=== PATIENT | female | born 1980 | race Caucasian/White ===

== ENCOUNTER 2018-08-15 14:42 | Outpatient (REF) | payer SELFPAY ==
[2018-08-15 21:00] LABS: T4 7.9 ug/dL (4.5-12.5); TSH 3.33 uIU/mL (0.358-3.74)
[2018-08-17 17:43] LABS: T3, Total 103 ng/dl (97-169)
== END 2018-08-15 15:02 ==
LOC: NCHCN 14:42
PROVIDERS: PCP Family Medicine; Visit Provider Family Medicine
DX: E03.9 Hypothyroidism, unspecified (principal)
CPT/HCPCS: 84436; 84443; 84480

== ENCOUNTER 2019-07-20 13:02 | Outpatient (REF) | payer MEDICAID, SELFPAY ==
[2019-07-20 14:16] LABS: Calculated LDL 103 mg/dL; Cholesterol 163 mg/dL (50-200); HDL Cholesterol 50 mg/dL (40-60); TSH (W/Ref FT4) 3.25 uIU/mL (0.36-3.74); Triglyceride 53 mg/dL (30-150)
== END 2019-07-20 13:22 ==
LOC: NCHCN 13:02
PROVIDERS: PCP Family Medicine; Visit Provider Family Medicine
DX: E03.9 Hypothyroidism, unspecified (principal); F41.9 Anxiety disorder, unspecified; Z13.220 Encounter for screening for lipoid disorders
CPT/HCPCS: 80061; 84443

== ENCOUNTER 2020-04-29 10:16 | Outpatient (REF) | payer MEDICAID, SELFPAY ==
[2020-04-29 21:15] LABS: TSH (W/Ref FT4) 0.88 uIU/mL (0.36-3.74)
== END 2020-04-29 10:36 ==
LOC: NCHCN 10:16
PROVIDERS: PCP Family Medicine; Visit Provider Family Medicine
DX: E03.9 Hypothyroidism, unspecified (principal)
CPT/HCPCS: 84443

== ENCOUNTER 2020-05-09 17:22 | Outpatient (REF) | payer MEDICAID, SELFPAY ==
[2020-05-13 05:52] LABS: SARS-CoV-2 RNA Undetected (Undetected)
== END 2020-05-09 17:42 ==
LOC: NCHCN 17:22
PROVIDERS: PCP Family Medicine; Visit Provider Nurse Practitioner Family
DX: R05 Cough (principal)
CPT/HCPCS: U0003

== ENCOUNTER 2020-05-16 07:08 | Outpatient (CLI) | payer MEDICAID, SELFPAY ==
[2020-05-17 23:48] LABS: COVID-19 RT-PCR Result NEGATIVE (Negative)
== END 2020-05-16 07:28 ==
PROVIDERS: PCP Family Medicine; Visit Provider Family Medicine
DX: Z11.59 Encounter for screening for other viral diseases (principal); Z01.818 Encounter for other preprocedural examination
CPT/HCPCS: U0003

== ENCOUNTER 2020-05-19 04:36 | Outpatient (CLI) | payer MEDICAID, SELFPAY ==
[2020-05-19] MEDS: Inhaler, Assist Device 1 EACH MC (11:47)
[2020-05-19] MEDS: Albuterol HFA 18 GM 200 PUFF INH IH (11:47)
--- NOTE | 2020-05-23 10:08 | W.PFT ---
Date of service: 05/19/20 Time of Service: 10:06 Pulmonary Function Test Result Interpretation Spirometry: Shows no evidence of obstructive airways disease, no bronchodilator response Lung Volumes: No evidence of restriction Diffusion Capacity: Normal Airway Pressure: Normal Impression Normal pulmonary function study, clinical correlation recommended Clinical Correlation therefore is recommended.
== END 2020-05-19 04:56 ==
PROVIDERS: PCP Family Medicine; Visit Provider Family Medicine
DX: R05 Cough (principal); R06.09 Other forms of dyspnea; R07.9 Chest pain, unspecified
CPT/HCPCS: 94060; 94726; 94729

== ENCOUNTER 2021-03-16 10:02 | Outpatient (CLI) | payer MEDICAID, SELFPAY ==
--- NOTE | 2021-03-16 | DI.US_ITS ---
Exam(s) US PELVIS TRANSVAGINAL EXAM: US PELVIS TRANSVAGINAL CLINICAL HISTORY: PELVIC PAIN, R10.2 TECHNIQUE: Ultrasound of the pelvis was performed both transabdominal and transvaginal. COMPARISON: None FINDINGS: UTERUS: Uterus is nongravid anteverted. Measures 10.4 cm length x 5.7 cm AP x 1.2 cm wide. There is a small 2 millimeter hyperechoic focus in the anterior myometrium at the fundus level which is possibly a tiny calcified fibroid. No large fibroids identified. Endometrial thickness measures 3 mm. There is no fluid in the endometrial canal. CERVIX: There are no obvious nabothian cysts. RIGHT OVARY: Measures 3.2 x 1.7 x 1.5 cm Contains small subcentimeter follicular cysts. Normal blood flow. LEFT OVARY: Measures 2.7 x 1.6 x 1.8 cm Also contains small subcentimeter follicular cysts. Normal blood flow. CUL-DE-SAC: No free fluid evident. IMPRESSION: 1. There is a small 2-3 millimeter hyperechoic focus which is probably a small calcification in the a nterior myometrium at the level the fundus, probably a tiny calcified fibroid. No other uterine find ings. Endometrial thickness is age-appropriate and there is no fluid in the endometrial canal. 2. Small follicular cysts noted in both ovaries. No solid ovarian masses. 3. No free fluid evident in the adnexal regions and cul-de-sac. DATA REPOSITORY:
== END 2021-03-16 10:22 ==
PROVIDERS: PCP Family Medicine; Visit Provider Advanced Practice Midwife
DX: N83.02 Follicular cyst of left ovary (principal); N83.01 Follicular cyst of right ovary; N85.8 Other specified noninflammatory disorders of uterus
CPT/HCPCS: 76830; 76856

== ENCOUNTER 2021-05-15 14:50 | Outpatient (REF) | payer MEDICAID, SELFPAY ==
[2021-05-15 21:59] LABS: TSH (W/Ref FT4) 3.67 uIU/mL (0.36-3.74)
== END 2021-05-15 14:51 | disposition home or self-care (01) ==
LOC: NCHCN 14:50
PROVIDERS: PCP Family Medicine; Visit Provider Family Medicine
DX: E03.9 Hypothyroidism, unspecified (principal)
CPT/HCPCS: 84443

== ENCOUNTER 2021-07-19 08:57 | Outpatient (REF) | payer MEDICAID, SELFPAY ==
[2021-07-19 15:19] LABS: FREE T4 1.35 ng/dL (0.76-1.46); TSH 1.15 uIU/mL (0.36-3.74)
[2021-07-19 21:50] LABS: T3,Free 3.4 pg/mL (2.8-5.3)
== END 2021-07-19 08:58 | disposition home or self-care (01) ==
LOC: NCHCN 08:57
PROVIDERS: PCP Family Medicine; Visit Provider Family Medicine
DX: E03.9 Hypothyroidism, unspecified (principal)
CPT/HCPCS: 84439; 84443; 84481

== ENCOUNTER 2022-06-13 10:09 | Outpatient (REF) | payer MEDICAID, SELFPAY ==
[2022-06-13 16:03] LABS: FREE T4 1.63 ng/dL (0.76-1.46); TSH 0.08 uIU/mL (0.36-3.74)
[2022-06-14 19:31] LABS: T3,Free 4.5 pg/mL (2.8-5.3)
== END 2022-06-13 10:10 | disposition home or self-care (01) ==
LOC: NCHCN 10:09
PROVIDERS: PCP Family Medicine; Visit Provider Family Medicine
DX: E03.9 Hypothyroidism, unspecified (principal)
CPT/HCPCS: 84439; 84443; 84481

== ENCOUNTER 2022-07-23 15:41 | Outpatient (REF) | payer MEDICAID, SELFPAY ==
[2022-07-23 16:02] LABS: TSH 0.57 uIU/mL (0.36-3.74)
== END 2022-07-23 15:42 | disposition home or self-care (01) ==
LOC: NCHCN 15:41
PROVIDERS: PCP Family Medicine; Visit Provider Family Medicine
DX: E03.9 Hypothyroidism, unspecified (principal)
CPT/HCPCS: 84439; 84443

== ENCOUNTER 2022-11-19 01:26 | Outpatient (CLI) | payer MEDICAID, SELFPAY ==
--- NOTE | 2022-11-19 11:45 | DI.MAMMO_ITS ---
Exam(s) MAMMO SCREENING EXAM: MAMMO SCREENING CLINICAL HISTORY: screening TECHNIQUE: Bilateral full field digital CC and MLO mammographic images were obtained with 3D tomosyn thesis and utilizing computer aided detection (CAD). COMPARISON: None. FINDINGS: Masses/Architectural Distortion: None seen. Microcalcifications: No suspicious pleomorphic-type are seen. Skin Thickening/Nipple Retraction: None. IMPRESSION: 1. No significant interval change with no specific features of malignancy noted. 2. Unless there is more urgent need, screening mammography is recommended, as per [employer] guidelines. BI-RADS Category 1 - Negative Breast Density - Category C - Heterogeneously dense Breast density category C or D implies that the patient has dense breast tissue. Dense breast tissue is very common and is not abnormal but dense breast tissue can make it harder to find cancer on a ma mmogram. Also, dense breast tissue may increase their breast cancer risk. This information about the result of the mammogram report was provided to the patient to raise their awareness. Use this report when you speak with the patient about their risks for breast cancer, which includes their family hist ory. At that time, you may recommend for more screening tests (Ultrasound or MRI) as they might be us eful based on their risk. A negative radiographic report should not delay biopsy if a dominant or clinically suspicious mass is present. Up to ten percent of cancers are not identified on mammography. A negative report may reinforce clinical impression. Adenosis and dense breasts may obscure an underlying neoplasm. False positive reports average 6 to 10%. Patient will receive a letter notifying them of these results.
== END 2022-11-19 01:46 ==
LOC: DI 01:27
PROVIDERS: PCP Family Medicine; Visit Provider Obstetrics & Gynecology
DX: Z12.31 Encounter for screening mammogram for malignant neoplasm of breast (principal)
CPT/HCPCS: 77063; 77067

== ENCOUNTER 2023-02-20 13:01 | Outpatient (REF) | payer MEDICAID, SELFPAY ==
[2023-02-20 14:42] LABS: HCT 41.6 % (36.0-46.0); HGB 13.9 g/dL (11.2-15.7); MCH 30.3 pg (27.0-33.0); MCHC 33.4 % (32.0-36.0); MCV 91 fL (80-95); MPV 9.4 fL (8.0-11.0); Platelet Count 288 10^3/uL (130-400); RBC 4.59 10^6/uL (3.93-5.22); RDW 12.2 % (11.7-14.6); RDW-SD 40.6 fL; WBC 6.44 10^3/uL (4.4-10.8)
[2023-02-20 15:40] LABS: Anion Gap 3.7 mmol/L (3-11); BUN 13 mg/dL (7-18); CO2 30.3 mmol/L (21.0-32.0); CREATININE 0.8 mg/dL (0.55-1.02); Calculated LDL 104 mg/dL (<100); Chloride 107 mmol/L (98-107); Cholesterol 211 mg/dL (<200); Estimated GFR 94.28 (mL/min/1.73m2); Glucose 92 mg/dL (74-106); HDL Cholesterol 80 mg/dL (40-60); Potassium 4.3 mmol/L (3.5-5.1); Sodium 141 mmol/L (136-145); TSH 3.04 uIU/mL (0.36-3.74); Triglyceride 138 mg/dL (<150)
[2023-02-21 10:38] LABS: Hepatitis C Ab w Rflx HCV PCR Negative (Negative)
== END 2023-02-20 13:02 | disposition home or self-care (01) ==
LOC: NCHCN 13:01
PROVIDERS: PCP Family Medicine; Visit Provider Registered Nurse
DX: Z82.49 Family history of ischemic heart disease and other diseases of the circulatory system (principal); Z13.220 Encounter for screening for lipoid disorders; Z11.59 Encounter for screening for other viral diseases; Z13.29 Encounter for screening for other suspected endocrine disorder; Z13.228 Encounter for screening for other metabolic disorders; Z13.0 Encounter for screening for diseases of the blood and blood-forming organs and certain disorders involving the immune mechanism; Z00.00 Encounter for general adult medical examination without abnormal findings
CPT/HCPCS: 80048; 80061; 85027; 86803; 84443

== ENCOUNTER 2023-03-29 16:01 | Emergency (ER) | payer MEDICAID, SELFPAY ==
--- NOTE | 2023-03-29 16:00 | DI.RAD_ITS ---
Exam(s) XR HAND RT COMPLETE EXAM: XR HAND RT COMPLETE CLINICAL HISTORY: Laceration, R/O Glass FB. TECHNIQUE: 2D digital imaging was performed. Three views. COMPARISON: No exams were available for comparison FINDINGS: BONES: No acute fracture is present. No bony destructive lesion is seen. JOINTS: No dislocation present. SOFT TISSUE: Gauze medially. No foreign body. IMPRESSION: Unremarkable radiographs of the right hand. DATA REPOSITORY: RADIATION DOSE DELIVERED:
[2023-03-29 16:04] VITALS: BP 112/61; PULSE 84; RESP 16; TEMP 36.9; O2SAT 99
--- NOTE | 2023-03-29 17:06 | ED.GENADUL_ITS ---
Discharge Plan Disposition Patient Disposition: Home Condition: Stable Discharge Details Clinical Impression: Laceration of hand, right Primary Care Provider: Thalia Rodríguez ED Provider: Leslie Chowdhury Home Meds and New Rx's Prescriptions: No Action levothyroxine 100 mcg capsule 112 mcg PO DAILY budesonide-formoterol [Symbicort] 80-4.5 mcg/actuation HFA aerosol inhaler 1 inh inhalation ONCE alprazolam 0.25 mg tablet 0.25 mg PO QHS PRN fluticasone propionate 50 mcg/actuation spray,suspension 1 spray intranasal DAILY Rx Instructions: administer into each nostril etonogestrel-ethinyl estradiol [NuvaRing] 0.12-0.015 mg/24 hr ring 1 vag ring vaginal Q4W Qty: 3 4RF Rx Instructions: leave in place for 4 weeks. Then remove and replace with the new ring. albuterol 90 mcg/actuation Aerosol 90 mcg INHALATION PRN PRN Discharge Instructions Instructions: Laceration (ED) Additional Instructions: Have sutures removed in 7 to 10 days. No soaking. Keep clean and dry. After 12 to 24 hours you may wash under running soap and water. Return sooner for any signs of infection including red streaks drainage swelling or tenderness. The anesthesia will wear off in approximately 2 hours. Follow up with primary care provider in 3-5 days if needed. Return to ED sooner if any worsening or concerns. Increase oral fluids. Please take Tylenol or Ibuprofen with food every 4-6 hours as needed for pain and swelling. Referrals: Thalia Rodríguez, AUDIO VISUAL TECH [Primary Care Provider] - 1 week Medical Decision Making 42-year-old female presents to the ER with chief complaint of right hand laceration. Patient hit counter prior to arrival and accidentally hit a glass. She has approximately 4 cm laceration noted to the dorsal aspect of her ulnar surface of her hand. Bleeding is controlled upon arrival. EMS was called to the scene and applied dressing. She does have distal CMS intact. She reports a little bit of numbness to the pinky finger. She does have full range of motion in full flexion and extension. Last Tdap was approximately 7 years ago. She does have a past medical history of autism and ADHD, anxiety asthma migraines and hypothyroidism. Laceration cleaned with chlorhexidine, anesthetized with 1.5% lidocaine with e pi, patient tolerated well. Laceration repaired with #7 four-point 0 Ethilon sutures wound well approximated. Discussed home care strict return instructions and to have sutures removed in approximately 7 to 10 days. She verbalized understanding. She does have a little bit of numbness to her pinky however she does have full flexion extension which was again verified post in preanesthesia. See preprocedure note. Patient discharged home with home care. This text was generated using [employer]volent dictation system, please disregard any oddities of phrase or misspellings. Imaging Data Radiologic Study: Imaging: X-Ray Radiologist's impression: Imaging protocol: Radiologic exam of the right hand. Views: 3 or more views. COMPARISON: No relevant prior studies available. FINDINGS: Bones/joints: There is no evidence of acute fracture.There is no evidence of malalignment or dislocation. Soft tissues: No foreign body identified. IMPRESSION: 1. There is no evidence of acute fracture.There is no evidence of malalignment or dislocation. 2. No foreign body identified. Thank you for allowing us to participate in the care of your patient. Dictated and Authenticated by: Amy Osman MD [facility] General Mode of arrival: EMS . Date/Time Provider Initiated Documentation: 03/29/23 16:11 . Limitations to Documentation: no limitations . Information obtained by: patient, RN notes reviewed and old records reviewed . HPI Narrative: 42-year-old female presents to the ER with chief complaint of right hand laceration. Patient hit counter prior to arrival and accidentally hit a glass. She has approximately 4 cm laceration noted to the dorsal aspect of her ulnar surface of her hand. Bleeding is controlled upon arrival. EMS was called to the scene and applied dressing. She does have distal CMS intact. She reports a little bit of numbness to the pinky finger. She does have full range of motion in full flexion and extension. Last Tdap was approximately 7 years ago. She does have a past medical history of autism and ADHD, anxiety asthma migraines and hypothyroidism. Related Data Home Medications Medication Instructions Recorded Confirmed alprazolam 0.25 mg tablet 0.25 mg PO QHS PRN 10/22/22 03/29/23 budesonide-formoterol HFA 80 1 inh inhalation ONCE 10/22/22 03/29/23 mcg-4.5 mcg/actuation aerosol inhaler (Symbicort) etonogestrel 0.12 mg-ethinyl 1 vag ring vaginal Q4W #3 ea 10/22/22 03/29/23 estradiol 0.015 mg/24 hr vaginal ring (NuvaRing) fluticasone propionate 50 1 spray intranasal DAILY 10/22/22 03/29/23 mcg/actuation nasal spray,suspension levothyroxine 100 mcg capsule 112 mcg PO DAILY 10/22/22 03/29/23 albuterol 90 mcg/actuation aerosol 90 mcg inhalation PRN PRN 03/29/23 03/29/23 inhaler Previous Rx's Medication Instructions Recorded etonogestrel 0.12 mg-ethinyl 1 vag ring vaginal Q4W #3 ea 10/22/22 estradiol 0.015 mg/24 hr vaginal ring (NuvaRing) Allergies Allergy/AdvReac Type Severity Reaction Status Date / Time acetaminophen [From Vicodin] AdvReac Mild Verified 03/29/23 16:09 hydrocodone [From Vicodin] AdvReac Mild Verified 03/29/23 16:09 General Stated Complaint: Laceration EZIO: 4 Review of Systems Integumentary/Breasts Skin/Breast: Reports wounds PFSH All Active Problems (Updated 03/29/23 @ 19:15 by Leslie Chowdhury NP) Abnormal perimenopausal bleeding (Acute) Laceration of hand, right (Acute) Medical History Acquired hypothyroidism Hashimotos Anxiety with occasional depression Asthma Migraine Perforation of right tympanic membrane Tinnitus, bilateral Vertigo Surgical History History of dilation and curettage For molar in ~2004 Family History Paternal Aunt Breast cancer Social History Smoking/Tobacco Use Status: Never Smoking risk assessment performed?: Yes Alcohol Intake: never Drug use: Never Substance use type: does not use Adopted: No Household members: spouse and children Housing: house Number of Children: 3 Communication Needs: None Sexually active: Yes Do you think of yourself as: straight/heterosexual Current gender identity: female What is your relationship status?: Panel score (0-1 are the most socially isolated patients): 1 Do you feel safe at home: Yes Do you feel safe in your relationship?: Yes Female Reproductive History Menstrual Age of Menarche: 15 Duration of menses: 3-5 days control method: permanent sterilization (vasectomy) History History 5 Para 3 Hx # Term Pregnancies 3 Multiple births Hx # Pregnancies Ectopic pregnancies AB induced Hx Number of Living Children 3 AB spontaneous Past Pregnancies Del. Date GA/Weeks # Preg Succ Route Wgt Sex Labor Lgth Anesth esia Location Prov Complic 09/23/03 No 09/23/04 No 02/25/07 38 No Yes vaginal 2920.001 g Female [place], [place] 12/23/08 40 No Yes vaginal 4167.38 g Female [facility] 11/27/15 40 No Yes vaginal 3968.933 g Male [facility] [place], [place] Delivery Date: 09/23/03 Last Updated by: Kassy Caro MD [facility] Delivery Date: 09/23/04 Last Updated by: Kassy Caro MD [facility] - D&C Delivery Date: 02/25/07 Last Updated by: Kassy Caro MD Re[facility] - Autism spectrum Delivery Date: 12/23/08 Last Updated by: Kassy Caro MD [place] Delivery Date: 11/27/15 Last Updated by: Kassy Caro MD Richi - autism spectrum Exam Extrem Right upper extremity: hand Details: laceration dorsal hand ulnar aspect proximal Details: irregular and L-shaped Hand/finger images: 1. Approximately 4 cm laceration noted bleeding controlled at this time. Course Vital Signs Vital signs: Vital Signs Temperature 36.9 C 03/29/23 16:04 Pulse 84 03/29/23 16:04 Respiratory Rate 16 03/29/23 16:04 Blood Pressure 112/61 03/29/23 16:04 Pulse Oximetry 99 03/29/23 16:04 Temperature 36.9 C 03/29/23 16:04 Temperature Source Skin 03/29/23 16:04 Pulse 84 03/29/23 16:04 Respiratory Rate 16 03/29/23 16:04 Blood Pressure 112/61 03/29/23 16:04 Blood Pressure Position Sitting 03/29/23 16:04 Pulse Oximetry 99 03/29/23 16:04 Oxygen Delivery Method Room Air 03/29/23 16:04 Oxygen Flow Rate 0 03/29/23 16:04 Pain Level 5 03/29/23 16:04 Procedures Laceration Laceration 1: Site: hand Side (If applicable): right Size (cm): 4 Description: irregular Depth: simple, single layer Local Anesthetic: Lidocaine 1% and with Epi Amount of anesthesia used (mL): 3 Pre-repair: wound explored, irrigated extensively and deep structures intact Skin layer closed with: nylon Size (cm): 4-0 Number of sutures: 7 Technique: simple, interrupted
--- NOTE | 2023-03-29 17:50 | DI.VRAD_ITS ---
PROCEDURE INFORMATION: Exam: XR Right Hand Exam date and time: 03/29/2023 5:19 PM Age: 42 years old Clinical indication: Injury or trauma; Other: Laceration, R/O glass fb TECHNIQUE: Imaging protocol: Radiologic exam of the right hand. Views: 3 or more views. COMPARISON: No relevant prior studies available. FINDINGS: Bones/joints: There is no evidence of acute fracture.There is no evidence of malalignment or dislocation. Soft tissues: No foreign body identified. IMPRESSION: 1. There is no evidence of acute fracture.There is no evidence of malalignment or dislocation. 2. No foreign body identified. Dictated and Authenticated by: Amy Osman MD. Ordering:MAKI Nelson MD
[2023-03-29 19:32] VITALS: BP 101/84; PULSE 84; RESP 18; TEMP 37; O2SAT 99
== END 2023-03-29 19:36 | disposition home or self-care (01) ==
PROVIDERS: Emergency Provider Registered Nurse Emergency; PCP Registered Nurse
DX: S61.411A Laceration without foreign body of right hand, initial encounter (principal); W26.8XXA Contact with other sharp object(s), not elsewhere classified, initial encounter
CPT/HCPCS: 12002; 99283; 73130

== ENCOUNTER 2023-04-06 09:18 | Emergency (ER) | payer MEDICAID, SELFPAY ==
[2023-04-06 09:20] VITALS: BP 132/81; PULSE 90; RESP 16; TEMP 37.3; O2SAT 100
--- NOTE | 2023-04-06 09:36 | ED.GENADUL_ITS ---
Discharge Plan Disposition Patient Disposition: Home Discharge Details Clinical Impression: Encounter for removal of sutures Primary Care Provider: Thalia Rodríguez ED Provider: Marvin Sebastian Home Meds and New Rx's Prescriptions: No Action levothyroxine 100 mcg capsule 112 mcg PO DAILY budesonide-formoterol [Symbicort] 80-4.5 mcg/actuation HFA aerosol inhaler 1 inh inhalation ONCE alprazolam 0.25 mg tablet 0.25 mg PO QHS PRN fluticasone propionate 50 mcg/actuation spray,suspension 1 spray intranasal DAILY Rx Instructions: administer into each nostril etonogestrel-ethinyl estradiol [NuvaRing] 0.12-0.015 mg/24 hr ring 1 vag ring vaginal Q4W Qty: 3 4RF Rx Instructions: leave in place for 4 weeks. Then remove and replace with the new ring. albuterol 90 mcg/actuation Aerosol 90 mcg INHALATION PRN PRN Discharge Instructions Additional Instructions: Monitor wound for any signs of infection and return immediately if these occur. Otherwise continue to keep wound clean and dry. Referrals: Thalia Rodríguez, SCHOOL BUS AIDE [Primary Care Provider] - (As needed for reassessment) Medical Decision Making 7 sutures removed, Steri-Strips placed to continue to help wound healing. HPI General Mode of arrival: ambulatory . Date/Time Provider Initiated Documentation: 04/06/23 09:20 . Limitations to Documentation: no limitations . Information obtained by: patient, RN notes reviewed and old records reviewed . History of Present Illness 42 year old F presents to the emergency department with the chief complaint of Suture removal, Patient notes no other symptoms.. Related Data Home Medications Medication Instructions Recorded Confirmed alprazolam 0.25 mg tablet 0.25 mg PO QHS PRN 10/22/22 04/06/23 budesonide-formoterol HFA 80 1 inh inhalation ONCE 10/22/22 04/06/23 mcg-4.5 mcg/actuation aerosol inhaler (Symbicort) etonogestrel 0.12 mg-ethinyl 1 vag ring vaginal Q4W #3 ea 10/22/22 04/06/23 estradiol 0.015 mg/24 hr vaginal ring (NuvaRing) fluticasone propionate 50 1 spray intranasal DAILY 10/22/22 04/06/23 mcg/actuation nasal spray,suspension levothyroxine 100 mcg capsule 112 mcg PO DAILY 10/22/22 04/06/23 albuterol 90 mcg/actuation aerosol 90 mcg inhalation PRN PRN 03/29/23 04/06/23 inhaler Previous Rx's Medication Instructions Recorded etonogestrel 0.12 mg-ethinyl 1 vag ring vaginal Q4W #3 ea 10/22/22 estradiol 0.015 mg/24 hr vaginal ring (NuvaRing) Allergies Allergy/AdvReac Type Severity Reaction Status Date / Time acetaminophen [From Vicodin] AdvReac Mild Verified 04/06/23 09:23 hydrocodone [From Vicodin] AdvReac Mild Verified 04/06/23 09:23 General Stated Complaint: SutureRem EZIO: 5 Review of Systems Constitutional Constitutional: Denies chills and Denies fever(s) Musculoskeletal Musculoskeletal: Denies arthralgias Integumentary/Breasts Skin/Breast: Denies rash and Denies skin swelling PFSH All Active Problems (Updated 04/06/23 @ 09:41 by Marvin Sebastian NP) Abnormal perimenopausal bleeding (Acute) Laceration of hand, right (Acute) Encounter for removal of sutures (Acute) Medical History Acquired hypothyroidism Hashimotos Anxiety with occasional depression Asthma Migraine Perforation of right tympanic membrane Tinnitus, bilateral Vertigo Surgical History History of dilation and curettage For molar in ~2004 Family History Paternal Aunt Breast cancer Social History Smoking/Tobacco Use Status: Never Smoking risk assessment performed?: Yes Alcohol Intake: never Drug use: Never Substance use type: does not use Adopted: No Household members: spouse and children Housing: house Number of Children: 3 Communication Needs: None Sexually active: Yes Do you think of yourself as: straight/heterosexual Current gender identity: female What is your relationship status?: Panel score (0-1 are the most socially isolated patients): 1 Do you feel safe at home: Yes Do you feel safe in your relationship?: Yes Female Reproductive History Menstrual Age of Menarche: 15 Duration of menses: 3-5 days control method: permanent sterilization (vasectomy) History History 5 Para 3 Hx # Term Pregnancies 3 Multiple births Hx # Pregnancies Ectopic pregnancies AB induced Hx Number of Living Children 3 AB spontaneous Past Pregnancies Del. Date GA/Weeks # Preg Succ Route Wgt Sex Labor Lgth Anesth esia Location Prov Complic 09/23/03 No 09/23/04 No 02/25/07 38 No Yes vaginal 2920.001 g Female [place], [place] 12/23/08 40 No Yes vaginal 4167.38 g Female [facility] 11/27/15 40 No Yes vaginal 3968.933 g Male [facility] [place], [place] Delivery Date: 09/23/03 Last Updated by: Kassy Caro MD [facility] Delivery Date: 09/23/04 Last Updated by: Kassy Caro MD [facility] - D&C Delivery Date: 02/25/07 Last Updated by: Kassy Caro MD Re[facility] - Autism spectrum Delivery Date: 12/23/08 Last Updated by: Kassy Caro MD [place] Delivery Date: 11/27/15 Last Updated by: Kassy Caro MD Richi - autism spectrum Exam Const General: cooperative, comfortable and no acute distress Orientation: alert, awake and oriented x3 Skin Rashes: no rashes Trauma: laceration (healing well laceration without erythema, purulence, or dehiscence.) Course Vital Signs Vital signs: Vital Signs Temperature 37.3 C 04/06/23 09:20 Pulse 90 04/06/23 09:20 Respiratory Rate 16 04/06/23 09:20 Blood Pressure 132/81 04/06/23 09:20 Pulse Oximetry 100 04/06/23 09:20 Temperature 37.3 C 04/06/23 09:20 Temperature Source Skin 04/06/23 09:20 Pulse 90 04/06/23 09:20 Respiratory Rate 16 04/06/23 09:20 Respiratory Effort Normal, Non-Labored 04/06/23 09:26 Blood Pressure 132/81 04/06/23 09:20 Blood Pressure Position Sitting 04/06/23 09:20 Pulse Oximetry 100 04/06/23 09:20 Oxygen Delivery Method Room Air 04/06/23 09:20 Oxygen Flow Rate 0 04/06/23 09:20 Pain Level 0 04/06/23 09:20
[2023-04-06 09:37] VITALS: BP 132/81; PULSE 90; RESP 16; TEMP 37.3; O2SAT 100
== END 2023-04-06 09:38 | disposition home or self-care (01) ==
PROVIDERS: Emergency Provider Nurse Practitioner Family; PCP Registered Nurse
DX: Z48.02 Encounter for removal of sutures (principal)

== ENCOUNTER 2023-06-18 15:38 | Outpatient (REF) | payer MEDICAID, SELFPAY | END 2023-06-18 15:39 | disposition home or self-care (01) | LOC: LBN 15:38 | PROVIDERS: PCP Registered Nurse; Visit Provider Nurse Practitioner Family | DX: R30.0 Dysuria (principal) | CPT/HCPCS: 87086 ==

== ENCOUNTER 2023-07-04 16:20 | Outpatient (REF) | payer MEDICAID, SELFPAY | END 2023-07-04 16:21 | disposition home or self-care (01) | LOC: NCHCN 16:20 | PROVIDERS: PCP Registered Nurse; Visit Provider Family Medicine | DX: E03.9 Hypothyroidism, unspecified (principal) | CPT/HCPCS: 84443 ==

== ENCOUNTER 2023-10-03 15:10 | Outpatient (REF) | payer MEDICAID, SELFPAY ==
--- OUTSIDE RECORDS SUMMARY | 2023-10-03 15:13 | XMS_ITS | CCD ---
Author Name Unknown Address [address] [place] [address] [phone] Organization Unknown Address [address] [place] [address] [phone] Care Team Providers Care Edge Glue Machine Tender Name Role Phone RAKESH AVILA Attending Physician [phone] Vital Signs Unknown or Not Available. Allergies Unknown or Not Available. Procedures Unknown or Not Available. History of Immunizations Unknown or Not Available. Problems Unknown or Not Available. Results Unknown or Not Available. Active Medications Unknown or Not Available. Medications Administered During Visit Unknown or Not Available. Encounters Encounter Diagnosis Diagnosis Code Start Date Localized swelling of head [id number] Social History Unknown or Not Available. Patient Decision Aids Unknown or Not Available. Discharge Instructions You were admitted to [facility] on 03/07/2023 11:10 with a principal diagnosis of Localized swelling, mass and lump, head You were discharged from [facility] on 03/07/2023 11:10 Should you have any questions prior to discharge, please contact a member of your healthcare team. If you have left the hospital and have any questions, please contact your primary care physician. Chief Complaint and Reason For Visit Unknown or Not Available. Function Status Unknown or Not Available. Plan of Care Unknown or Not Available. Referral/Transition of Care Unknown or Not Available.
--- OUTSIDE RECORDS SUMMARY | 2023-10-03 15:13 | XMS_ITS | CCD ---
Author Name Unknown Address [address] [place] [address] [phone] Organization Unknown Address [address] [place] [address] [phone] Care Team Providers Care Psychiatric Security Nurse Name Role Phone CLOVER MESA Attending Physician [phone] Vital Signs Unknown or Not Available. Allergies Unknown or Not Available. Procedures Unknown or Not Available. History of Immunizations Unknown or Not Available. Problems Unknown or Not Available. Results Unknown or Not Available. Active Medications Unknown or Not Available. Medications Administered During Visit Unknown or Not Available. Encounters Encounter Diagnosis Diagnosis Code Start Date Encounter for screening for cardiovascular disor ders Z136 04/26/2023 Social History Unknown or Not Available. Patient Decision Aids Unknown or Not Available. Discharge Instructions You were admitted to [facility] on 04/26/2023 09:37 with a principal diagnosis of Encounter for screening for cardiovascular disorders You were discharged from [facility] on 04/26/2023 09:37 Should you have any questions prior to [...]
--- OUTSIDE RECORDS SUMMARY | 2023-10-03 15:13 | XMS_ITS | CCD ---
Author Name Unknown Address [address] [place] [address] [phone] Organization Unknown Address [address] [place] [address] [phone] Care Team Providers Care Fiscal Agent Name Role Phone RAKESH AVILA Attending Physician [phone] Vital Signs Unknown or Not Available. Allergies Unknown or Not Available. Procedures Unknown or Not Available. History of Immunizations Unknown or Not Available. Problems Unknown or Not Available. Results Unknown or Not Available. Active Medications Unknown or Not Available. Medications Administered During Visit Unknown or Not Available. Encounters Encounter Diagnosis Diagnosis Code Start Date Trichodermal cyst [id number] 03/28/2023 Social History Unknown or Not Available. Patient Decision Aids Unknown or Not Available. Discharge Instructions You were admitted to [facility] on 03/28/2023 08:50 with a principal diagnosis of Trichodermal cyst You were discharged from [facility] on 03/28/2023 08:50 Should you have any questions prior to [...]
[2023-10-03 16:06] LABS: TSH (W/Ref FT4) 3.84 uIU/mL (0.36-3.74)
[2023-10-03 16:24] LABS: FREE T4 1.24 ng/dL (0.76-1.46)
== END 2023-10-03 15:11 | disposition home or self-care (01) ==
LOC: NCHCN 15:10
PROVIDERS: PCP Registered Nurse; Visit Provider Family Medicine
DX: E03.9 Hypothyroidism, unspecified (principal)
CPT/HCPCS: 84439; 84443

== ENCOUNTER → 2023-11-20 02:11 | Outpatient (CLI) | payer MEDICAID, SELFPAY ==
--- NOTE | 2023-11-20 08:45 | DI.MAMMO_ITS ---
Exam(s) MAMMO SCREENING EXAM: MAMMO SCREENING for EC CLINICAL HISTORY: Screening, Z12.39 TECHNIQUE: Bilateral full field digital CC and MLO mammographic images were obtained with 3D tomosyn thesis and utilizing computer aided detection (CAD). COMPARISON: Available for comparison. FINDINGS: Masses/Architectural Distortion: None seen. Microcalcifications: No suspicious pleomorphic-type are seen. Skin Thickening/Nipple Retraction: None. IMPRESSION: 1. No significant interval change with no specific features of malignancy noted. 2. Unless there is more urgent need, screening mammography is recommended, as per [employer] guidelines. BI-RADS Category 1 - Negative Breast Density - Category C - Heterogeneously dense Breast density category C or D implies that the patient has dense breast tissue. Dense breast tissue is very common and is not abnormal but dense breast tissue can make it harder to find cancer on a ma mmogram. Also, dense breast tissue may increase their breast cancer risk. This information about the result of the mammogram report was provided to the patient to raise their awareness. Use this report when you speak with the patient about their risks for breast cancer, which includes their family hist ory. At that time, you may recommend for more screening tests (Ultrasound or MRI) as they might be us eful based on their risk. A negative radiographic report should not delay biopsy if a dominant or clinically suspicious mass is present. Up to ten percent of cancers are not identified on mammography. A negative report may reinforce clinical impression. Adenosis and dense breasts may obscure an underlying neoplasm. False positive reports average 6 to 10%. Patient will receive a letter notifying them of these results.
== END ==
PROVIDERS: PCP Registered Nurse; Visit Provider Family Medicine
DX: Z12.31 Encounter for screening mammogram for malignant neoplasm of breast (principal)
CPT/HCPCS: 77063; 77067

== ENCOUNTER 2024-01-09 10:05 | Outpatient (REF) | payer MEDICAID, SELFPAY ==
--- NOTE | 2024-01-09 09:15 | PAPFT_PTH ---
PATIENT: Madison Hua LOC: [facility] U#:[id number] AGE/SX: 43/F ROOM: RE01/09/[address]: Kassy Caro MD : 1980 BED: DIS: 01/09/2024 SPEC #: [id number] RECD: 01/09/24 13:06 STATUS: GAUTAM REQ #: [id number] TEMITOPE: 01/09/24 09:[address]: Kassy Caro DEPT: [facility] Cytology RECD BY: Sowmya Arzate ENTERED: 01/09/24 13:06 SP TYPE: PAPFT OTHR DR: Thalia Rodríguez Tissues: 1 - CX/ENDOCX FOR PAP SMEARS Procedures: PAP THIN PREP/UVM Screening HPV DNA PROBE Comments: [id number]
== END 2024-01-09 10:06 | disposition home or self-care (01) ==
LOC: LBN 10:05
PROVIDERS: PCP Registered Nurse; Visit Provider Obstetrics & Gynecology
DX: Z12.4 Encounter for screening for malignant neoplasm of cervix (principal); Z11.51 Encounter for screening for human papillomavirus (HPV)
CPT/HCPCS: 88142; 87624

== ENCOUNTER 2024-01-16 14:49 | Outpatient (REF) | payer MEDICAID, SELFPAY ==
[2024-01-16 21:23] LABS: TSH (W/Ref FT4) 0.28 uIU/mL (0.36-3.74)
== END 2024-01-16 14:50 | disposition home or self-care (01) ==
LOC: NCHCN 14:49
PROVIDERS: PCP Family Medicine; Visit Provider Family Medicine
DX: E03.9 Hypothyroidism, unspecified (principal)
CPT/HCPCS: 84439; 84443

== ENCOUNTER 2024-04-15 07:28 | Emergency (ER) | payer MEDICAID, SELFPAY ==
--- NOTE | 2024-04-15 07:30 | DI.RAD_ITS ---
Exam(s) XR TOE RT GREAT EXAM: XR TOE RT GREAT CLINICAL HISTORY: board with nail dropped on toe. TECHNIQUE: 2D digital imaging was performed. Three images were obtained. COMPARISON: No exams were available for comparison FINDINGS: BONES: No acute fracture is present. No bony destructive lesion is seen. JOINTS: No dislocation present. SOFT TISSUE: The outline of the toenail is seen lateral to the terminal tuft of the great toe. No ra diopaque foreign body is identified. No soft tissue gas is seen. IMPRESSION: No evidence of acute fracture, dislocation, or subluxation. DATA REPOSITORY: RADIATION DOSE DELIVERED:
[2024-04-15 07:32] VITALS: BP 124/74; PULSE 83; RESP 14; TEMP 36.5; O2SAT 99
[2024-04-15 07:40] VITALS: BP 124/74; PULSE 83; RESP 14; TEMP 36.5; O2SAT 99
--- NOTE | 2024-04-15 07:51 | W.ED.GENAD ---
Discharge Plan Disposition Patient Disposition: Home Condition: Improving Discharge Details Clinical Impression: Injury of toe Primary Care Provider: Yolanda Rico ED Provider: Oscar Baca Home Meds and New Rx's Prescriptions: New ciprofloxacin HCl 500 mg tablet 500 mg PO BID 7 Days Qty: 14 0RF No Action budesonide-formoterol [Symbicort] 80-4.5 mcg/actuation HFA aerosol inhaler 1 inh inhalation ONCE alprazolam 0.25 mg tablet 0.25 mg PO QHS PRN fluticasone propionate 50 mcg/actuation spray,suspension 1 spray intranasal DAILY PRN Rx Instructions: administer into each nostril levothyroxine 100 mcg capsule 125 mcg PO DAILY etonogestrel-ethinyl estradiol [NuvaRing] 0.12-0.015 mg/24 hr ring 1 vag ring vaginal Q4W Qty: 3 4RF Rx Instructions: leave in place for 4 weeks. Then remove and replace with the new ring. albuterol 90 mcg/actuation Aerosol 90 mcg INHALATION PRN PRN Discharge Instructions Instructions: Wound Care ED Additional Instructions: Please take antibiotic as prescribed. Continue with anti-inflammatory as needed. Please return to the emergency department for any worsening symptoms HPI General Date/Time Provider Initiated Documentation: 04/15/24 07:33. HPI Narrative: 43-year-old female presents 1 day after accidentally dropping a board with a gurjit nail on her great toe of her right foot, pain and swelling to area of trauma, able to ambulate however does become more uncomfortable and swollen. Denies fevers chills nausea vomiting or other systemic signs of illness Related Data Home Medications ?Medication ?Instructions ?Recorded ?Confirmed alprazolam 0.25 mg tablet 0.25 mg PO QHS PRN 10/22/22 04/15/24 budesonide-formoterol HFA 80 1 inh inhalation ONCE 10/22/22 04/15/24 mcg-4.5 mcg/actuation aerosol inhaler (Symbicort) fluticasone propionate 50 1 spray intranasal DAILY PRN 10/22/22 04/15/24 mcg/actuation nasal spray,suspension albuterol 90 mcg/actuation aerosol 90 mcg inhalation PRN PRN 03/29/23 04/15/24 inhaler etonogestrel 0.12 mg-ethinyl 1 vag ring vaginal Q4W #3 ea 01/09/24 04/15/24 estradiol 0.015 mg/24 hr vaginal ring (NuvaRing) levothyroxine 100 mcg capsule 125 mcg PO DAILY 01/09/24 04/15/24 ciprofloxacin HCl 500 mg tablet 500 mg PO BID 7 days #14 tabs 04/15/24 Previous Rx's ?Medication ?Instructions ?Recorded etonogestrel 0.12 mg-ethinyl 1 vag ring vaginal Q4W #3 ea 01/09/24 estradiol 0.015 mg/24 hr vaginal ring (NuvaRing) ciprofloxacin HCl 500 mg tablet 500 mg PO BID 7 days #14 tabs 04/15/24 Allergies Allergy/AdvReac Type Severity Reaction Status Date / Time acetaminophen (From Vicodin) AdvReac Mild Itching Verified 04/15/24 07:37 hydrocodone (From Vicodin) AdvReac Mild Itching Verified 04/15/24 07:37 General Stated Complaint: Cellulitis EZIO: 4 Exam Narrative Exam Narrative: Alert interactive nontoxic No respiratory distress No tachycardia Right great toe: Some area of erythema and induration dorsomedial aspect of great toe, no fluctuance or purulence no lymphangitic streaking, no crepitus or bulla, warm well-perfused sensate extremity range of motion of toes intact, nailbed intact, no foreign bodies appreciated, DP pulse intact ambulatory Course Vital Signs Vital signs: Vital Signs Temperature 36.5 C 04/15/24 07:32 Pulse 83 04/15/24 07:32 Respiratory Rate 14 04/15/24 07:32 Blood Pressure 124/74 04/15/24 07:32 Pulse Oximetry 99 04/15/24 07:32 Temperature 36.5 C 04/15/24 07:40 Temperature Source Temporal Artery Scan 04/15/24 07:40 Pulse 83 04/15/24 07:40 Respiratory Rate 14 04/15/24 07:40 Respiratory Effort Normal 04/15/24 07:36 Blood Pressure 124/74 04/15/24 07:40 Blood Pressure Position Sitting 04/15/24 07:40 Pulse Oximetry 99 04/15/24 07:40 Oxygen Delivery Method Room Air 04/15/24 07:40 Oxygen Flow Rate 0 04/15/24 07:40 Pain Level 3 04/15/24 07:40 Medical Decision Making 43-year-old female presents 1 day after accidentally dropping a board with a gurjit nail on her great toe of her right foot, pain and swelling to area of trauma, able to ambulate however does become more uncomfortable and swollen. Denies fevers chills nausea vomiting or other systemic signs of illness; Right great toe: Some area of erythema and induration dorsomedial aspect of great toe, no fluctuance or purulence no lymphangitic streaking, no crepitus or bulla, warm well-perfused sensate extremity range of motion of toes intact, nailbed intact, no foreign bodies appreciated, DP pulse intact ambulatory; patient has been previously vaccinated however last tetanus booster was approximately 8 years ago, given likely contaminated wound will provide Tdap booster, will cover empirically with ciprofloxacin, will also obtain x-ray to assess for any underlying bony injury or retained foreign body 10: 13 patient was comfortably no acute distress x-ray negative for acute fracture dislocation subluxation or foreign body. Initiate ciprofloxacin antibiotics. Home care instructions and return precautions given Quality:SDOH Health Related Social Needs: No Data to Display PFSH All Active Problems (Updated 04/15/24 @ 10:14 by Oscar Baca MD) Injury of toe (Acute) Medical History (Updated 04/15/24 @ 10:14 by Oscar Baca MD) Migraine Asthma Abnormal perimenopausal bleeding Well managed with nuvaring Acquired hypothyroidism Hashimotos Anxiety with occasional depression Perforation of right tympanic membrane Vertigo Tinnitus, bilateral Surgical History History of dilation and curettage For molar in ~2004 Family History Paternal Aunt Breast cancer Social History Smoking/Tobacco Use Status: Former Tobacco Use Smoking risk assessment performed?: Yes Alcohol Intake: never Drug use: Never Substance use type: does not use Adopted: No Household members: spouse and children Housing: house Number of Children: 3 Communication Needs: None Sexually active: Yes Do you think of yourself as: straight/heterosexual Current gender identity: female What is your relationship status?: Panel score (0-1 are the most socially isolated patients): 1 Do you feel safe at home: Yes Do you feel safe in your relationship?: Yes Female Reproductive History Menstrual Age of Menarche: 15 Duration of menses: 3-5 days control method: permanent sterilization (vasectomy) History History 5 Para 3 Hx # Term Pregnancies 3 Multiple births Hx # Pregnancies Ectopic pregnancies AB induced Hx Number of Living Children 3 AB spontaneous Past Pregnancies Del. Date GA/Weeks # Preg Succ Route Wgt Sex Labor Lgth Anesthesia Location Prov Complic 09/23/03 No 09/23/04 No 02/25/07 38 No Yes vaginal 2920.001 g Female [place], [place] 12/23/08 40 No Yes vaginal 4167.38 g Female [facility] 11/27/15 40 No Yes vaginal 3968.933 g Male [place], [place] Delivery Date: 09/23/03 Last Updated by: Kassy Caro MD ETOP Delivery Date: 09/23/04 Last Updated by: Kassy Caro MD [place] - D&C Delivery Date: 02/25/07 Last Updated by: Kassy Caro MD Re[place] - Autism spectrum Delivery Date: 12/23/08 Last Updated by: Kassy Caro MD [place] Delivery Date: 11/27/15 Last Updated by: MD Richi Zhang - autism spectrum
[2024-04-15] MEDS: Ciprofloxacin 500 MG TAB PO (08:06)
[2024-04-15] MEDS: Ibuprofen 600 MG TAB PO (08:55)
== END 2024-04-15 10:23 | disposition home or self-care (01) ==
PROVIDERS: Emergency Provider Emergency Medicine; PCP Family Medicine
DX: S91.131A Puncture wound without foreign body of right great toe without damage to nail, initial encounter (principal); Z87.891 Personal history of nicotine dependence; W45.0XXA Nail entering through skin, initial encounter; Y93.K9 Activity, other involving animal care; Y92.017 Garden or yard in single-family (private) house as the place of occurrence of the external cause
CPT/HCPCS: 90471; 90715; 99283; 73660

== ENCOUNTER 2024-04-16 11:15 | Outpatient (REF) | payer MEDICAID, SELFPAY ==
--- OUTSIDE RECORDS SUMMARY | 2024-04-16 11:17 | XMS_ITS | Encounter Summary ---
Author Organization [facility] Address [address] [place] [address] Care Team Providers Care Operational Meteorologist Name Role Phone Unknown, Provider Primary Care Provider + [phone] Encounter Details Date Type Department Care Team (Late st Contact Info) Description 05/16/2020 Lab Requisition [facility] Pathology & Laboratory Medicine - [address] [id number] Outr Resulting Lab, Provider Social History Tobacco Use Types Packs/Day Years Used Date Smoking Tobacco: Never Assessed Sex and Gender Information Value Date Recorded Sex Assigned at Not on file Gender Identity Not on file Sexual Orientation Not on file documented as of this encounter Plan of Treatment Not on file documented as of this encounter Procedures Procedure Name Priority Date/Time Associated Diagnosis Comments DO NOT ORDER STANDALONE - BROAD COVID TEST Today 05/16/2020 9:15 EDT COVID-19 TESTING Routine 05/16/2020 9:15 EDT documented in this encounter Results * DO NOT ORDER STANDALONE - BROAD COVID TEST (05/16/2020 9:15 EDT) COVID-19 rt-PCR Result NEGATIVE Negative 05/17/2020 22:09 EDT [facility] Comment: 2019-novel Coronavirus (2019-nCoV) not detected by the qRT-PCR assay. Consider testing for other respiratory viruses or re-collecting for 2019-nCoV testing. Note: Optimum timing for peak viral levels during infections caused by 2019-nCoV have not been determined. Collection of multiple specimens from the same patient may be necessary to detect the virus. Limitations Positive results are indicative of active infection with SARS-CoV-2 but do not rule out bacterial infection or co-infection with other viruses. The agent detected may not be the definite cause of disease. In addition, detection of viral RNA may not indicate the presence of infectious virus or that SARS-CoV-2 is the causative agent for clinical symptoms. Negative results do not preclude SARS-CoV-2 infection and should not be used as the sole basis for patient management decisions. Negative results must be combined with clinical observations, patient history, and epidemiological information. False negative results may also occur if amplification inhibitors are present in the specimen or if inadequate numbers of organisms are present in the specimen. Optimum specimen types and timing for peak viral levels during infections caused by SARS-CoV-2 have not been fully determined. Collection of multiple specimens (types and time points) from the same patient may be necessary to detect the virus. The test was validated for use with upper respiratory specimens obtained via nasopharyngeal or oropharyngeal swabs in VTM, UTM, M4, M5, M6, saline, and MTM media. The performance of this test has not been established for other specimens. Specimens collected using other FDA recommended Specimen Collection Materials listed in the FDA COVID-19 [employer] communication (December 17, 2019) are processed with the caveat that they were not all validated for use with this test and the result must be interpreted in this context. Furthermore, a false negative results may occur if a specimen is improperly collected, transported or handled. If the virus mutates in the RT-PCR target region, SARS-CoV-2 may not be detected or may be detected less predictably. Inhibitors or other types of interference may produce a false negative result. An interference study evaluating the effect of common cold medications was not performed. This test is not FDA-cleared but its performance characteristics were established by our CLIA-certified, CAP-accredited, high complexity laboratory in accordance with CLIA regulations, [employer] [place] [employer] (CAP) guidelines (Dec 10, 2019), and FDA guidance (Nov 21, 2019). This test is only for use under the Food and Drug Administration's Emergency Use Authorization. Swab ENTIRE NASOPHARYNX / Unknown 05/16/2020 9:15 EDT 05/16/2020 15:49 EDT Provider Outr Resulting Lab MICROBIOLOGY - GENERAL ORDERABLES [facility] [place], [place] * COVID-19 TESTING (05/16/2020 9:15 EDT) COVID-19 rt-PCR Result NEGATIVE Negative 05/17/2020 23:43 EDT [facility] Comment: 2019-novel Coronavirus (2019-nCoV) not detected by the qRT-PCR assay. Consider testing for other respiratory viruses or re-collecting for 2019-nCoV testing. Note: Optimum timing for peak viral levels during infections caused by 2019-nCoV have not been determined. Collection of multiple specimens from the same patient may be necessary to detect the virus. Limitations Positive results are indicative of active infection with SARS-CoV-2 but do not rule out bacterial infection or co-infection with other viruses. The agent detected may not be the definite cause of disease. In addition, detection of viral RNA may not indicate the presence of infectious virus or that SARS-CoV-2 is the causative agent for clinical symptoms. Negative results do not preclude SARS-CoV-2 infection and should not be used as the sole basis for patient management decisions. Negative results must be combined with clinical observations, patient history, and epidemiological information. False negative results may also occur if amplification inhibitors are present in the specimen or if inadequate numbers of organisms are present in the specimen. Optimum specimen types and timing for peak viral levels during infections caused by SARS-CoV-2 have not been fully determined. Collection of multiple specimens (types and time points) from the same patient may be necessary to detect the virus. The test was validated for use with upper respiratory specimens obtained via nasopharyngeal or oropharyngeal swabs in VTM, UTM, M4, M5, M6, saline, and MTM media. The performance of this test has not been established for other specimens. Specimens collected using other FDA recommended Specimen Collection Materials listed in the FDA COVID-19 [employer] communication (December 17, 2019) are processed with the caveat that they were not all validated for use with this test and the result must be interpreted in this context. Furthermore, a false negative results may occur if a specimen is improperly collected, transported or handled. If the virus mutates in the RT-PCR target region, SARS-CoV-2 may not be detected or may be detected less predictably. Inhibitors or other types of interference may produce a false negative result. An interference study evaluating the effect of common cold medications was not performed. This test is not FDA-cleared but its performance characteristics were established by our CLIA-certified, CAP-accredited, high complexity laboratory in accordance with CLIA regulations, [employer] [place] [employer] (CAP) guidelines (Dec 10, 2019), and FDA guidance (Nov 21, 2019). This test is only for use under the Food and Drug Administration's Emergency Use Authorization. Performing Lab [facility] 05/17/2020 23:43 EDT [facility] Swab 05/16/2020 9:15 EDT 05/16/2020 15:49 EDT Provider Outr Resulting Lab MICROBIOLOGY - GENERAL ORDERABLES [facility] [address] [place] [address] [facility] [place], [place] documented in this encounter Visit Diagnoses Not on filedocumented in this encounter Care Teams Operational Meteorologist Relationship Specialty Start Date End Date Unknown, Provider, PCP - General 12/23/23 documented as of this encounter
--- OUTSIDE RECORDS SUMMARY | 2024-04-16 11:17 | XMS_ITS | Encounter Summary ---
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, face and neck Yolanda Rioc MD [address] [place] [address] [facility] [address] [place] [address] Referral ID Status Reason Start Date Expiration Date Visits Requested Visits Authorized [id number] Authorized Consult, Test & Treat PCP Updated and/or Approved 01/16/2024 01/15/2025 6 6 Encounter Details Date Type Department Care Team (Latest Contact Info) Description 01/23/2024 Transcribe Orders eDH Incoming Referrals [phone] Yolanda Rico MD [address] [place] [address] 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, face and neck Social History Tobacco Use Types Packs/Day Years Used Date Smoking Tobacco: Former Cigarettes 0.5 14 1 996 - 2009 Smokeless Tobacco: Never Comments:Smoked off and on a nd family smoked in the house Sex and Gender Information Value Date Recorded Sex Assigned at Not on file Gender Identity Not on file Sexual Orientation Not on file documented as of this encounter Plan of Treatment Upcoming Encounters Date Type Department Care Team (Late st Contact Info) Description 06/04/2024 10:20 AM EDT Office Visit Dermatology at [facility] [address] [place] [address] Scheduled Referrals Name Type Priority Associated Diagnoses Orde r Schedule Referral to Dermatology Outpatient Referral Urgent 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
--- OUTSIDE RECORDS SUMMARY | 2024-04-16 11:17 | XMS_ITS ---
Author Organization Unknown Address [address] [place] [phone] Phone Care Team Providers Care White Washer Name Role Phone AUSTIN Durán Attending Unavailable WARD Celis Primary Unavailable Social History Type Status Start Date End Date Code Code Syst em Sex Female Hospital Discharge Instructions Should you have any questions prior to discharge, please contact a member of your healthcare team. If you have left the hospital and have any questions, please contact your primary care physician. Reason For Referral No Data Found Plan of Treatment No Data Found Encounters Encounter Diagnosis Start Date Code Code Sys tem Trichodermal cyst 03/28/2023 SNOMED-CT Personal Care Team Section Performer Name Performer Role Active Date Inactive Da te
--- OUTSIDE RECORDS SUMMARY | 2024-04-16 11:17 | XMS_ITS | Encounter Summary ---
Author Organization [facility] Address [facility] [place] [address] Care Team Providers Care Thermal Intelligence Analyst Name Role Phone Sridevi Segovia MD Primary Care Provider [phone] Reason for Visit * Reason Comments Referral * Consultation (Routine) - Closed Specialty Diagnoses / Procedures Referred By Contac t Referred To Contact Pulmonology Diagnoses Cough Sridevi Segovia MD [address] [place] [address] [facility] [place] [address] [place] [address] Referral ID Status Reason Start Date Expiration Date V isits Requested Visits Authorized [id number] Closed Consult, [facility] PCP Updated and/or Approved 11/25/2020 11/25/2021 12 12 Encounter Details Date Type Department Care Team (Late st Contact Info) Description 03/01/2021 9:00 AM EDT Office [place] [phone] Justin Begum MD [facility] [place] [address] Cough, persistent; Environmental allergies; Uncomplicated asthma, unspecified asthma severity, unspecified whether persistent Social History Tobacco Use Types Packs/Day Years Used Date Smoking Tobacco: Former Cigarettes 0.5 14 1 6 - 2009 Smokeless Tobacco: Never Comments:Smoked off and on a nd family smoked in the house Sex and Gender Information Value Date Recorded Sex Assigned at Not on file Gender Identity Not on file Sexual Orientation Not on file documented as of this encounter Last Filed Vital Signs Vital Sign Reading Time Taken Comments Blood Pressure 108/53 03/01/2021 8:55 AM EDT Pulse 80 03/01/2021 8:55 AM EDT Temperature 37 ??C (98.6 ??F) 03/01/2021 8:55 AM EDT Respiratory Rate 20 03/01/2021 8:55 AM EDT Oxygen Saturation 100% 03/01/2021 8:55 AM EDT Inhaled Oxygen Concentration - - Weight 72.6 kg (160 lb) 03/01/2021 8:55 AM EDT Height 170.2 cm (5' 7) 03/01/2021 8:55 AM EDT Body Mass Index 25.06 03/01/2021 8:55 AM EDT documented in this encounter Patient Instructions * Patient Instructions* Justin Begum MD - 03/01/2021 9:00 AM EDT Images from the original note were not included. It was a pleasure seeing you today. Here is a brief reminder of what we discussed: ??? I think it very likely that much of your cough is due to allergies and related post-nasal drip.I do think there is a likelihood that you have a component of allergic asthma. It is not uncommon for these symptoms to be triggered or worsened by a viral infection. People with asthma often have a slow recovery from cold viruses as well which you have experienced. ??? Let's focus on treating both your allergies and starting some asthma treatment and I think you will feel much better. ??? It may be quite helpful to try to get rid of the mold issue that you are having as this often makes a big difference for people Summary of the plan going forward: ??? Start using Flonase 1 spray per nostril twice per day. See instructions on how to best use it below. Let me know if this hasn't made a dramatic difference about 2 weeks ??? If your cough is not dramatically better, start using the Symbicort inhaler 2 puffs twice per day for asthma. This contains both an inhaled steroid and a long-acting version of albuterol ??? Keep using albuterol as needed. Try using this in advance of any exercise as this may help you to feel better and allow you to do more ??? Please do not hesitate to get in touch with my office with any questions or if new issues should arise before our next scheduled visit. You can reach me by phone ([phone]) or by sending a [employer] message. Justin Coughlin MD Tips for Optimal Use of Nasal [place] Medication It is incredibly common for people to use their nasal sprays improperly (myself included, for many years!). This is likely because we often do not provide adequate instructions. Here are some tips about how to get the most benefit and to reduce the risk of side effects such asnosebleeds. 1. Use your RIGHT hand to spray your LEFT nostril and your LEFT hand to spray your RIGHT nostril. This will help you to aim the spray in the proper direction instead of having all the medicine hit the septum which lies between your nasal passages (which is not where you need the medicine to go!) 2. For your LEFT NOSTRIL - tip your head down a bit and use your left hand to gently pull your nostril away (watch video for help understanding). 3. With your right hand, insert the tip of the sprayer into your Left nostril and aim posteriorly as if you were going to aim towards the top of your Left ear. 4. [place] the medication. But DO NOT forcefully sniff in while you are spraying the medication - this will pull all the medicine past your sinuses and right into the back of your throat and your mouth(you may have noticed you can taste the medicine). Instead, just simply spray. If you feel some of the medicine starting to drip out you can gently sniff the medicine back in. 5. Repeat steps 2-4 for you RIGHT nostril - pull nostril with RIGHT hand and spray with LEFT hand. Watching this video below may help to make this all more clear. Around the one minute isela he starts to go through the procedure. [email or web address]com/[email or web address]?[email or web address] documented in this encounter Progress Notes * Justin Begum MD - 03/01/2021 9:00 AM EDT Images from the original note were not included. [facility] Section of Pulmonary and Critical Care Medicine Outpatient Consultation - Initial Visit Date of Encounter: 03/01/2021 Referring Provider: Sridevi Segovia MD [address] [place] [address] PCP: Sridevi Segovia MD Reason for Evaluation: Cough This was a [id number] office visit. History of Present Illness: Madison Hua is a 40 y.o. with a history of hypothyroidism and anxiety who presents for an initial evaluation of cough. Reviewed outside records from Dr. Sridevi Segovia's office -multiple office notes- re: cough - Started with bad cold. Has been productive and bothersome at night. Associated nasal congestion and post-nasal drip. PFTs normal. Reported history of asthma with allergic trigger. Allergy symptoms were worsening in October 2020 with sneeze and cough regularly. Former smoker - 8 pack years and quit in 2009. -ENT note from 09/05/20 - for R TM perforation, hearing impairment, and B/L tinnitus. Hearing improved with cerumenectomy. -PFT report from 04/2020 does not have spirometric data just interpretation of normal pulmonary function and normal diffusion -no imaging Today: Ms. Hua recalls that she typically has prolonged recovery from any respiratory viral illness- can have persistent cough for several months that will eventually resolve. This past year, was sick at the same time as several other family members with viral illness. Had prolonged cough which eventually resolved, but then recurred 3-4 weeks later and has been persistent. She prefers to minimize medication and has been hesitant to trial montelukast that was recommended to her by her PCP. She notes that she does get chest tightness at times that can be quite bothersome. When she has tried albuterol in the past, it has been helpful for these symptoms. Previously exercised regularly, but after births of her children she is not exercising as much. She did not have allergies when growing up in [place], but then moved to [place], [place] where she had very significant allergies. Upon moving back to [place], allergies have persisted. She endorses frequent itchy eyes, runny nose, throat irritation. Shehas tried oral anti-histamines but never intra-nasal medication. She has only occasional heart burnand dyspepsia. Cough is typically dry. No time of day is particularly worse. Lives in a remodeled trailer. She believes there is some mold in the trailer. Has been living there for 3 years. Recalls having nasal trauma in adolescence and she and her mother wonder if this could contribute to some issues with breathing through her nose. CXR performed today is normal. Report of prior PFT in 2019 performed at an outside facility includes only the interpretation of normal, but there is no primary data to review. Exercise Capacity: Has been somewhat hesitant to exercise due to fear of making cough or chest tightness worse Pulmonary Medications: None Review of Systems: Denies fevers, chills, nausea, vomiting, diarrhea, abdominal pain, eye pain, mouth ulcers, joint pain, leg swelling, and rashes. The remainder of a 12-point ROS was negative unlessotherwise stated in the HPI. Respiratory symptoms as per HPI. 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 levothyroxine (Synthroid) 100 mcg Tablet, TAKE 1 TABLET BY MOUTH EVERY DAY DISCONTINUE 88MCG DOSE, Disp: , Rfl: Allergies: Allergies Allergen Reactions ??? Vicodin [Hydrocodone-Acetaminophen] Itching Physical Examination: BP 108/53 Pulse 80 Temp 37 ??C (98.6 ??F) (Temporal) Resp 20 Ht 170.2 cm (5' 7) Wt 72.6 kg (160 lb) SpO2 100% BMI 25.06 kg/m?? General: Well-appearing, NAD HEENT: No pharyngeal erythema or exudates, no thrush, no scleral icterus, no conjunctival pallor, no thyromegaly or nodules Nodes: No palpable cervical or supraclavicular lymphadenopathy Cardiovascular: Regular rate, normal S1 and S2, no murmurs or extra heart sounds, 2+ radial pulses B/L, no RV heave, no JVD Respiratory: No increased work of breathing, good air movement throughout, no wheezes or crackles, normal breath sounds during forced exhalation Abdomen: Soft, non-tender, non-distended Extremities: No lower extremity edema, no clubbing Musculoskeletal: Normal bulk and tone, no joint effusions Skin: No rashes Neurologic: Alert, oriented, and communicative. No facial asymmetry or dysarthria. Symmetric gaze. Ambulatory. Psychologic: Normal mood and affect. Pertinent Diagnostics - I personally reviewed the following with my comments included below: Labs: None to review Chest Imaging: CXR PA/Lat 03/01/21 - normal appearing Pulmonary Function Tests: Date FVC FVC % FEV1 FEV1 % FEV1/VC TLC TLC % DLCO DLCO% Comments 05/19/20 - [facility] - - - - - - - - - Normal pulmonary function including normal diffusing capacity Interpretation of most recent PFTs: Unable to provide independent interpretation Diagnoses Environmental allergies Chronic cough Allergic asthma Impression: History of slow recovery from prior respiratory viruses with prolonged cough and periods of chest tightness in conjunction with significant and persistent nasal allergy symptoms are rather consistentwith allergic asthma. Normal spirometry from 2019 could be consistent especially if she was feelingwell and not bronchospastic at the time of testing. Her prior symptomatic response to bronchodilators also supports this. Her chest imaging performed today is normal making several asthma mimicers less likely. Itt is possible that much of her symptoms are driven purely by nasal allergies, post-nasal drip, and throat irritation. If so, controlling allergy symptoms effectively may resolve the majority of hersymptoms. That said, I think it is more likely that poorly controlled allergies are exacerbating underlying airway hypersensitivity, which also occurs in a more dramatic fashion when she has an upperrespiratory tract infection. She raised concern about possible mold in her home. If this is truly present, certainly could exacerbate asthmatic symptoms. Recommendations: -Start intranasal fluticasone 1 spray per nostril BID. Demonstrated and provided written instructions for optimal use. If incomplete symptom response after 2 weeks, advised that she start ICS/LABA (Symbicort) as 2 puffs BID standing. -If this controls symptoms well, it may be that asthma control will fluctuate seasonally with allergies and could be possible to step back to SMART (PRN) approach given her desire to minimize medications. I explained that we should be aggressive in trying to control bothersome symptoms now and thensee how we may be able to scale back -continue albuterol PRN and trial pre-medication for exercise -Discussed use of spacer and provided verbal and written instructions for inhaler use -Advised of the risk of mold exposure in worsening asthma, so may be worthwhile to explore this more and remediate as able -Follow up in clinic in 4 months. Call sooner should new questions or concerning symptoms arise. I spent >50% of this 80 minute encounter on 03/01/2021 counseling and coordinating care as detailed in my note above. Justin Begum MD [facility] [employer] Consultanthealth editor Pulmonary and Critical [place] [address] [email or web address] documented in this encounter Plan of Treatment Upcoming Encounters Date Type Department Care Team (Late st Contact Info) Description 06/04/2024 10:20 AM EDT Office Visit Dermatology at [address] [phone] documented as of this encounter Visit Diagnoses Diagnosis Cough, persistent Cough Environmental allergies Allergic rhinitis, cause unspecified Uncomplicated asthma, unspecified asthma severity, unspecified whether persistent documented in this encounter Care Teams Thermal Intelligence Analyst Relationship Specialty Start Date End Date Sridevi Segovia MD [address] [place] [address] PCP - General Family Medicine 12/02/20 01/22/24 documented as of this encounter
--- OUTSIDE RECORDS SUMMARY | 2024-04-16 11:17 | XMS_ITS | Clinical Summary ---
Author Organization [facility] Address [address] [place] [id number] Care Team Providers Care Hoop Puncher Name Role Phone Unknown, Provider Primary Care Provider [phone] Social History Tobacco Use Types Packs/Day Years Used Date Smoking Tobacco: Never Assessed Interpersonal Safety Answer Date Record ed Physically Hurt Never 08/16/2020 Verbally Threaten Not on file 08/16/2020 Sex and Gender Information Value Date Recorded Sex Assigned at Not on file Gender Identity Not on file Sexual Orientation Not on file Plan of Treatment Health Maintenance Due Date Last Done Comments Hepatitis B Vaccine (1 of 3 - 19+ 3-dose series) 12/05 COVID-19 Vaccine ( season) 2023 Hepatitis C Screen Completed 02/20/2023 Procedures Procedure Name Priority Date/Time Associated Diagnosis Comments HEPATITIS C AB W REFLEX TO HCV RNA BY PCR Routine 02/20/2023 10:40 EDT from Last 3 Months or Most Recently Relevant to Health Maintenance Results * HEPATITIS C AB W REFLEX TO HCV RNA BY PCR (02/20/2023 10:40 EDT) Hep C Antibody Negative Negative 02/21/2023 10:33 EDT [facility] Blood VENOUS BLOOD / Unknown 02/20/2023 10:40 EDT 02/20/2023 21:46 EDT Provider Outr Resulting Lab CHEMISTRY & BLOOD GAS ORDERABLES [facility] [address] [place] [address] from Last 3 Months or Most Recently Relevant to Health Maintenance Care Teams Hoop Puncher Relationship Specialty Start Date End Date Unknown, Provider, PCP - General 12/23/23
--- OUTSIDE RECORDS SUMMARY | 2024-04-16 11:17 | XMS_ITS | Encounter Summary ---
Author Organization [facility] Address [facility] [address] [place] [address] Care Team Providers Care Body Bumper Name Role Phone Sridevi Segovia MD Primary Care Provider [phone] Encounter Details Date Type Department Care Team (Latest Contact Info) Description 07/11/2021 8:30 AM EDT TH Visit (TeleHealth) [place] [address] Justin Begum MD [facility] [place] [address] Cough, persistent; Environmental allergies; Mild intermittent asthma without complication Social History Tobacco Use Types Packs/Day Years Used Date Smoking Tobacco: Former Cigarettes 0.5 14 1 2009 Smokeless Tobacco: Never Comments:Smoked off and on a nd family smoked in the house Sex and Gender Information Value Date Recorded Sex Assigned at Not on file Gender Identity Not on file Sexual Orientation Not on file documented as of this encounter Patient Instructions * Patient Instructions* Justin Begum MD - 07/11/2021 8:30 AM EDT It was a pleasure seeing you today. Here is a brief reminder of what we discussed: ??? I am very glad to hear that your symptoms are doing so much better than when we last met ??? As we discussed, I think you should try using the Symbicort in place of Albuterol at some pointand see if it is similarly effective and causes less jitteriness. If this is true, you can feel free to use that as needed instead of albuterol. Be sure to rinse your mouth after use. ??? You can also use either your albuterol or Symbicort to pre-medicate for exercise to see if thishelps you to do more and feel better ??? Keep using the nasal spray when you feel you are having more coughing and nasal drip. If your symptoms are worsening, you may want to stick to using this more consistently for a period of time. ??? Follow up with me in 6 months. Please let me know sooner if you feel your symptoms are changingor not responding to your medications as usual. Please do not hesitate to get in touch with my office with any questions or if new issues should arise before our next scheduled visit. You can reach me by phone ([phone]) or by sending a [employer] message. Justin Coughlin MD documented in this encounter Progress Notes * Justin Begum MD - 07/11/2021 8:30 AM EDT Images from the original note were not included. [facility] [facility] of Pulmonary and Critical Care Medicine Outpatient Consultation Follow-up Date of Encounter: 07/10/2021 This was a telehealth virtual visit. PCP: Sridevi Segovia MD Pulmonary Problem List 1. Allergic asthma -Spirometry at [facility] Normal 2019 by report (no primary data to review) -symptomatic benefit from bronchodilators -Normal CXR February 2021 -If cough not controlled with intranasal steroids, to start low-dose Symbicort 2 puffs BID and potentially step down to PRN ICS/LABA -reported slow recovery from URIs in past with cough and chest tightness 2. Environmental allergies 3. Chronic cough - likely major contribution from allergic rhinitis and post- nasal drip. Also with asthma -Started intranasal fluticasone 1 spray BID initial eval 03/01/21 Brief Summary Madison Hua is a 40 y.o. with a history of chronic cough, environmental allergies, and likely allergic asthma who I saw for initial evaluation on 03/01/21. At initial visit on 03/01/21, I felt much of her symptoms may be due to suboptimally controlled allergies with rhinits and post-nasal drip leading to throat irritation and cough. However, given prior prolonged recoveries from URIs, possible concomitant allergic asthma. Advised to start intranasal flut icasone 1 spray per nostril BID and if incomplete resolution of symptoms start low-dose Symbicort BID with possible step down to PRN based on response. Since last visit: No intercurrent issues Today: After starting nasal spray she has had some benefit. Some days feel like she has post-nasal drip but other days not. As such, in an effort to minimize medication exposure, she has not been using Flonase consistently. Overall, she is feeling much better than last year. Even had a cold recently and did not have any significant increase in respiratory symptoms, which is great as this has been a big challenge in years past. She continue to feel that there may be some mold issue the trailer where she and her family are currently living. Hoping to move into a newer house soon, but has been delayed.Albuterol is helpful when needed - mostly using if she has a fit of coughing which is happening maybe 1-2x per month. No longer having chest tightness. Did find that she had some coughing when walking a hill recently and we discussed using inhaler as premedication for this to see if there is benefit. She has not done much cardio exercise. She also feels that adjusting her thyroid medication had abig effect on her symptoms as did getting her COVID vaccine. She does get jittery from use albuterol and this sometimes gives her pause in using more often. We discussed that she may get less jittery from Symbicort, which she has at home though has never triedto use. Moderna vaccine in December. Exercise Capacity: Dyspneic with hills Pulmonary Medications: Albuterol PRN - using a few times per month Symbicort PRN - has never used Review of Systems: Respiratory review of systems noted above. Patient denies headaches, vision changes, recent fevers or chills, unexplained weight changes, abdominal pain, nausea, vomiting, diarrhea. Remainder of 11-point ROS negative unless otherwise stated in HPI. I reviewed the patient's documented past medical, surgical, family, and social history and made changes in the eletronic record where necessary. 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 levothyroxine (Synthroid) 100 mcg Tablet, TAKE 1 TABLET BY MOUTH EVERY DAY DISCONTINUE 88MCG DOSE, Disp: , Rfl: ??? fluticasone propionate (FLONASE) 50 mcg/actuation Wisner, Suspension, 1 spray by Each Nare routedaily., Disp: 16 g, Rfl: 12 ??? budesonide-formoteroL (Symbicort) 80-4.5 mcg/actuation HFA Aerosol Inhaler, Inhale 2 puffs intothe lungs 2 times daily., Disp: 1 Inhaler, Rfl: 11 Allergies: Allergies Allergen Reactions ??? Vicodin [Hydrocodone-Acetaminophen] Itching Physical Examination: No vital signs were recorded due to this being a telemedicine visit. My limited physical examination obtainable via video is below: General: Well-appearing, NAD HEENT: No scleral icterus Respiratory: No evident increased work of breathing or visible accessory muscle use, no visualized or audible coughing, speaking in full sentences easily Neurologic: Alert, oriented, and communicative. No facial asymmetry or dysarthria. Symmetric gaze. Psychologic: Normal mood and affect. Pertinent Diagnostics - I personally reviewed the following with my comments included below: Labs: None to review ?? Chest Imaging: CXR PA/Lat 03/01/21 - normal appearing ?? Pulmonary Function Tests: Date FVC FVC % FEV1 FEV1 % FEV1/VC TLC TLC % DLCO DLCO% Comments 05/19/20 - [facility] - - - - - - - - - Normal pulmonary function including normal diffusing capacity Interpretation of most recent PFTs: Unable to provide independent interpretation ?? Diagnoses Environmental allergies Chronic cough Allergic asthma ?? Impression: Allergy and asthma symptoms are rather well controlled with improvement since starting intranasal steroids. Using rescue inhaler only a few times per month which is great. Given how mild and well controlled symptoms are, I think rescue inhaler alone without controller is reasonable and she prefers to minimize medication exposure. We discussed that she may have less jittery side effects from Symbicort which she has at home - I invited her to try using this as a rescue inhaler and if it works well can switch to this entirely. ?? Recommendations: -Continue intranasal fluticasone 1 spray per nostril 1-2x daily. If increased burden of symptoms, would advise using more consistently rather than in response to fluctuating symptoms -Try Symbicort as rescue to see if makes her less jittery. If so, continue to use as rescue. Otherwise can continue albuterol PRN -Advised to rinse mouth after use of Symbicort if she does try it -Trial inhalers for exercise pre-medication - can use albuterol or Symbicort -Follow up in clinic in 6 months. Call sooner should new questions or concerning symptoms arise. I spent >50% of this 30 minute encounter on 07/10/2021 in [id number] time, counseling, and documenting as detailed in my note above. Justin Begum MD [facility] Parcel Post Weigherpersonal lines sales rep Pulmonary and [place] [address] [email or web address] documented in this encounter Plan of Treatment Upcoming Encounters Date Type Department Care Team (Late st Contact Info) Description 06/04/2024 10:20 AM EDT Office Visit Dermatology at [address] [address] documented as of this encounter Visit Diagnoses Diagnosis Cough, persistent Cough Environmental allergies Allergic rhinitis, cause unspecified Mild intermittent asthma without complication Unspecified asthma documented in this encounter Care Teams Body Bumper Relationship Specialty Start Date End Date Sridevi Segovia MD [address] [place] [address] PCP - General Family Medicine 12/02/20 01/22/24 documented as of this encounter
--- OUTSIDE RECORDS SUMMARY | 2024-04-16 11:17 | XMS_ITS | Clinical Summary ---
Author Organization [facility] Address [facility] [place] [address] Care Team Providers Care Director Nursery School Name Role Phone Yolanda Rico MD Primary Care Provider [phone] Allergies Active Allergy Reactions Criticality Noted Date Comments Hydrocodone-Acetaminophen Itching 03/01/2021 Medications Medication Sig Dispensed Refills Start Date End Date Status levothyroxine (Synthroid) 100 mcg Tablet TAKE 1 TABLET BY MOUTH EVERY DAY DISCONTINUE 88MCG DOSE 02/02/2021 Active fluticasone propionate (FLONASE) 50 mcg/actuation Bandon, Suspension 1 spray by Each Nare route daily. 16 g 12 03/01/2021 Active budesonide-formoter oL (Symbicort) 80-4.5 mcg/actuation HFA Aerosol Inhaler Inhale 2 puffs into the lungs 2 times daily. 1 Inhaler 11 03/01/2021 Active albuteroL 90 mcg/actuation HFA Aerosol Inhaler Inhale 2 puffs into the lungs every 4 hours as needed for Wheezing. 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, face and neck from Last 3 Months Social History Tobacco Use Types Packs/Day Years Used Date Smoking Tobacco: Former Cigarettes 0.5 14 1 - 2009 Smokeless Tobacco: Never Comments:Smoked off and on a nd family smoked in the house Sex and Gender Information Value Date Recorded Sex Assigned at Not on file Gender Identity Not on file Sexual Orientation Not on file Last Filed Vital Signs Vital Sign Reading [...] Mass Index 25.06 03/01/2021 8:55 AM EDT Plan of Treatment Upcoming Encounters Date Type Department Care Team (Late st Contact Info) Description 06/04/2024 10:20 AM EDT Office Visit Dermatology at [facility] [address] [place] [phone] Health Maintenance Due Date Last Done Comments HIV screen 1998 Hepatitis C Screening 1998 Hepatitis B vaccine (0-59 yrs) (1) 12/06/1999 Tdap adult 12/06/1999 Tetanus vaccine 12/06/1999 HPV test 2010 PAP Smear 2010 Breast Cancer Share Decision Needed 2020 Breast Cancer screening 2020 Covid-19 Vaccine ( - 2022- season) 2023 Influenza (Flu) vaccine (1 o f 1 - Influenza standard series) 05/24/2024 Care Teams Director Nursery School Relationship Specialty Start Date End Date Yolanda Rico MD [address] [place] [address] PCP - General Family Medicine 01/23/24
--- OUTSIDE RECORDS SUMMARY | 2024-04-16 11:17 | XMS_ITS | Encounter Summary ---
Author Organization [facility] Address [address] [place] [address] Care Team Providers Care Office Professional Name Role Phone Unknown, Provider Primary Care Provider + [phone] Encounter Details Date Type Department Care Team (Late st Contact Info) Description 07/19/2021 Lab Requisition [facility] Pathology & Laboratory Medicine - [address] [id number] Outr Resulting Lab, Provider Social History Tobacco [...] Procedure Name Priority Date/Time Associated Diagnosis Comments T3 FREE Routine 07/19/2021 8:35 EDT documented in this encounter Results * T3 FREE (07/19/2021 8:35 EDT) T3, Free 3.4 2.8 - 5.3 pg/mL 07/19/2021 21:47 EDT [facility] Blood VENOUS BLOOD / Unknown 07/19/2021 8:35 EDT 07/19/2021 21:14 EDT Provider Outr Resulting Lab CHEMISTRY & BLOOD GAS ORDERABLES [facility] [address] [place] [address] documented in this encounter Visit Diagnoses Not on filedocumented in this encounter Care Teams Office Professional Relationship Specialty Start Date End Date Unknown, Provider, PCP - General 12/23/23 documented as of this encounter
--- OUTSIDE RECORDS SUMMARY | 2024-04-16 11:17 | XMS_ITS ---
Author Organization Unknown Address [address] [place] [phone] Phone Care Team Providers Care Chief Counsel Name Role Phone BONITA Valle Attending Unavailable WARD Celis Primary Unavailable Social [...] Diagnosis Start Date Code Code Sys tem Encounter for screening for cardiovascular disorders 0 04/26/2023 SNOMED-CT Personal Care Team Section Performer Name Performer Role Active Date Inactive Da te
--- OUTSIDE RECORDS SUMMARY | 2024-04-16 11:17 | XMS_ITS | Encounter Summary ---
Author Organization [facility] [place] [address] Care Team Providers Care Tool Carrier Name Role Phone Sridevi Segovia MD Primary Care Provider [phone] Reason for Visit * Reason Onset Date Comments Prior Authorization 03/02/2021 budesonide-f ormoteroL (Symbicort) 80-4.5 mcg/actuation HFA Aerosol Inhaler Encounter Details Date Type Department Care Team (Late st Contact Info) Description 03/02/2021 [place] [phone] Marianela Medina LNA Prior Authorization (budesonide-formoteroL (Symbicort) 80-4.5 mcg/actuation HFA Aerosol Inhaler ) Social History Tobacco Use Types Packs/Day Years Used Date Smoking Tobacco: Former Cigarettes 0.5 14 1 996 - 2009 Smokeless Tobacco: Never Comments:Smoked off and on a nd family smoked in the house Sex and Gender Information Value Date Recorded Sex Assigned at Not on file Gender Identity Not on file Sexual Orientation Not on file documented as of this encounter Miscellaneous Notes * Telephone Encounter - Cande Victor CMA - 03/02/2021 12:13 PM EDT PA NOT REQUIRED * Telephone Encounter - Marianela Medina LNA - 03/02/2021 9:27 AM EDT Medication Prior Authorization for Primary [place] [address] Request received via: cmm Patient: Madison Hua Patient : 1980 Insurance Company: [place] Medicaid General Form Sent via: [facility] [phone] Charles: [id number] Physician: Justin Begum MD Medication Requested:budesonide-formoteroL (Symbicort) 80-4.5 mcg/actuation HFA Aerosol Inhaler Frequency/Sig: Inhale 2 puffs into the lungs 2 times daily. Disp: 1 haler Refills: 11 Currently taking: no Diagnosis for this medication: Cough, persistent R05 Environmental allergies Z91.09 Uncomplicated asthma, unspecified asthma severity, unspecified whether persistent J45.909 Prior medications trialed in this patient: Additional Notes: documented in this encounter Plan of Treatment Upcoming Encounters Date Type Department Care Team (Late st Contact Info) Description 06/04/2024 10:20 AM EDT Office Visit Dermatology at [address] [address] documented as of this encounter Visit Diagnoses Not on filedocumented in this encounter Care Teams Tool Carrier Relationship Specialty Start Date End Date Sridevi Segovia MD [address] [place] [address] PCP - General Family Medicine 12/02/20 01/22/24 documented as of this encounter
--- OUTSIDE RECORDS SUMMARY | 2024-04-16 11:17 | XMS_ITS | Encounter Summary ---
Author Organization [facility] Address [address] [place] [address] Care Team Providers Care Siebel Crm Developer Name Role Phone Unknown, Provider Primary Care Provider + [phone] Encounter Details Date Type Department Care Team (Late st Contact Info) Description 02/20/2023 Lab Requisition [facility] Pathology & Laboratory Medicine - [address] [address] Outr Resulting Lab, Provider Social History Tobacco [...] RNA BY PCR Routine 02/20/2023 10:40 EDT documented in this encounter Results * HEPATITIS C AB W REFLEX TO HCV RNA BY PCR (02/20/2023 10:40 EDT) Hep C Antibody Negative Negative 02/21/2023 10:33 EDT [facility] Blood VENOUS BLOOD / Unknown 02/20/2023 10:40 EDT 02/20/2023 21:46 EDT Provider Outr Resulting Lab CHEMISTRY & BLOOD GAS ORDERABLES [facility] [address] [place] [address] documented in this encounter Visit Diagnoses Not on filedocumented in this encounter Care Teams Siebel Crm Developer Relationship Specialty Start Date End Date Unknown, Provider, PCP - General 12/23/23 documented as of this encounter
--- OUTSIDE RECORDS SUMMARY | 2024-04-16 11:17 | XMS_ITS | Referral Summary ---
Author Organization [facility] Address [address] [place] [address] Care Team Providers Care Volunteer Specialist Name Role Phone Unknown, Provider Primary Care Provider + [phone] Social History Tobacco Use Types Packs/Day Years Used Date Smoking Tobacco: Never Assessed Interpersonal Safety Answer Date Record ed Physically Hurt Never 08/16/2020 Verbally Threaten Not on file 08/16/2020 Sex and Gender Information Value Date Recorded Sex Assigned at Not on file Gender Identity Not on file Sexual Orientation Not on file Plan of Treatment Not on file Procedures Procedure Name Priority Date/Time Associated Diagnosis Comments HEPATITIS C AB W REFLEX TO HCV RNA BY PCR Routine 02/20/2023 10:40 EDT from Last 3 Months or Most Recently Relevant to Health Maintenance Results * HEPATITIS C AB W REFLEX TO HCV RNA BY PCR (02/20/2023 10:40 EDT) Hep C Antibody Negative Negative 02/21/2023 10:33 EDT [facility] Blood VENOUS BLOOD / Unknown 02/20/2023 10:40 EDT 02/20/2023 21:46 EDT Provider Outr Resulting Lab CHEMISTRY & BLOOD GAS ORDERABLES [facility] [address] [place] [address] from Last 3 Months or Most Recently Relevant to Health Maintenance Care Teams Volunteer Specialist Relationship Specialty Start Date End Date Unknown, Provider, PCP - General 12/23/23
--- OUTSIDE RECORDS SUMMARY | 2024-04-16 11:17 | XMS_ITS ---
Author Organization Unknown Address [address] [place] [phone] Phone Care Team Providers Care Ultimate Hoops Scoreboard Operator Name Role Phone AUSTIN Durán Attending Unavailable Social History Type Status Start Date [...] Diagnosis Start Date Code Code Sys tem Localized swelling of head 03/07/2023 [id number] 109 SNOMED-CT Personal Care Team Section Performer Name Performer Role Active Date Inactive Da te
--- OUTSIDE RECORDS SUMMARY | 2024-04-16 11:17 | XMS_ITS | Encounter Summary ---
Author Organization [facility] Address [address] [place] [address] Care Team Providers Care Auto Brake Mechanic Name Role Phone Unknown, Provider Primary Care Provider + [phone] Encounter Details Date Type Department Care Team (Late st Contact Info) Description 06/14/2022 Lab Requisition [facility] Pathology & Laboratory Medicine - [address] [phone] Outr Resulting Lab, Provider Social History Tobacco [...] Date/Time Associated Diagnosis Comments T3 FREE Routine 06/13/2022 9:30 EDT documented in this encounter Results * T3 FREE (06/13/2022 9:30 EDT) T3, Free 4.5 2.8 - 5.3 pg/mL 06/14/2022 19:25 EDT [facility] Blood VENOUS BLOOD / Unknown 06/13/2022 9:30 EDT 06/14/2022 17:53 EDT Provider Outr Resulting Lab CHEMISTRY & BLOOD GAS ORDERABLES [facility] [address] [place] [address] documented in this encounter Visit Diagnoses Not on filedocumented in this encounter Care Teams Auto Brake Mechanic Relationship Specialty Start Date End Date Unknown, Provider, PCP - General 12/23/23 documented as of this encounter
--- OUTSIDE RECORDS SUMMARY | 2024-04-16 11:17 | XMS_ITS | Encounter Summary ---
Author Organization [facility] [place] [address] Care Team Providers Care Administrative Support Clerk Name Role Phone Sridevi Segovia MD Primary Care Provider [phone] Reason for Visit * Reason Onset Date Comments Prior Authorization 03/02/2021 Budesonide-F ormoterol Fumarate 850-4.5 mcg/act Encounter Details Date Type Department Care Team (Late st Contact Info) Description 03/02/2021 [place] [address] Marisol Torres RN Prior Authorization (Budesonide-Formoterol Fumarate 850-4.5 mcg/act) Social History Tobacco Use Types Packs/Day Years [...] encounter Miscellaneous Notes * Telephone Encounter - Marisol oTrres RN - 03/03/2021 3:12 PM EDT RN rec'd notification that PA attempt resulted in response that a PA was NOT needed. RN called [facility] to verify if this was an issue with ISACC versus Generic. RN was notified that this was picked up on 03/01/2021. * Telephone Encounter - Marisol Torres RN - 03/02/2021 7:40 AM EDT Rec'd faxed PA request for patient's Budesonide-Formoterol Fumarate 80-4.5 mcg/act. [employer] Keycode: [id number] Patient Last Name: Aide Date of : [address] [facility] Primary Care Clinical Support Team for assistance with processing of prior authorization. documented in this encounter Plan of Treatment Upcoming Encounters Date Type Department Care Team (Late st Contact Info) Description 06/04/2024 10:20 AM EDT Office Visit Dermatology at [facility] [address] [place] [address] documented as of this encounter Visit Diagnoses Not on filedocumented in this encounter Care Teams Administrative Support Clerk Relationship Specialty Start Date End Date Sridevi Segovia MD [address] [place] [address] PCP - General Family Medicine 12/02/20 01/22/24 documented as of this encounter
--- OUTSIDE RECORDS SUMMARY | 2024-04-16 11:17 | XMS_ITS | Encounter Summary ---
Author Organization [facility] [place] [address] Care Team Providers Care Deputy Director Of Finance Name Role Phone Sridevi Segovia MD Primary Care Provider [phone] Encounter Details Date Type Department Care Team (Late st Contact Info) Description 07/06/2021 [place] [phone] Ange Hayes Social History Tobacco Use Types Packs/Day Years [...] AM EDT Office Visit Dermatology at [facility] [address] [place] [address] documented as of this encounter Visit Diagnoses Not on filedocumented in this encounter Care Teams Deputy Director Of Finance Relationship Specialty Start Date End Date Sridevi Segovia MD [address] [place] [address] PCP - General Family Medicine 12/02/20 01/22/24 documented as of this encounter
--- OUTSIDE RECORDS SUMMARY | 2024-04-16 11:17 | XMS_ITS | Encounter Summary ---
Author Organization [facility] Address [address] [place] [address] Care Team Providers Care Supervisor Tank Cleaning Name Role Phone Unknown, Provider Primary Care Provider [phone] Encounter Details Date Type Department Care Team (Late st Contact Info) Description 01/10/2024 Lab Requisition [facility] Pathology & Laboratory Medicine - [address] [address] Kassy Caro MD [address] [place] [address] [place] [id number] Encounter for other general examination Social History Tobacco Use Types Packs/Day Years [...] Procedure Name Priority Date/Time Associated Diagnosis Comments PAP TEST Today 01/09/2024 9:15 EDT Encounter for other general examination HPV DNA DETECTION WITH GENOTYPING, PCR Today 01/09/2024 9:15 EDT Encounter for other general examination documented in this encounter Results * HUMAN PAPILLOMAVIRUS (HPV) DETECTION-HIGH RISK TYPES (01/09/2024 9:15 EDT) HPV other High Risk types, PCR Negative Negative 01/16/2024 18:01 [facility] Comment:No E6 or E7 mRNA is detected from HPV types 16,18,31,33,35,39,45,51,52,56,58,59,66, and 68 by wax ball molder mediated amplification. Pap Test CERVIX UTERI STRUCTURE / Unknown 01/09/2024 9:15 EDT 01/16/2024 9:13 EDT Kassy Caro MD MICROBIOLOGY - GENER AL ORDERABLES [facility] [address] [place] [address] * PAP TEST (01/09/2024 9:15 EDT) Specimens A. Cervix and/or Endocervix , ThinPrep Imaging System with Manual Evaluation 01/16/2024 18:01 [facility] Specimen Adequacy Satisfactory for Evaluation - transformation zone component present 01/16/2024 18:01 [facility] General Categorization Epithelial Cell Abnormality 01/16/2024 18:01 [facility] Descriptive Diagnosis Squamous Cell Abnormality - Atypical squamous cells, undetermined significance (ASC-US). 01/16/2024 18:01 [facility] Educational Comments [facility] recommends following the ASCCP's management guidelines which may be found at www.asccp.org 01/16/2024 18:01 [facility] Attestation By the signature below, the attending physician certifies that they have personally conducted a gross and/or microscopic examination of the described specimens and rendered or confirmed the above diagnosis. 01/16/2024 18:01 [facility] at 1801 Clinical History See below 01/16/20 18:01 [facility] HPV The result for the Human Papillomavirus (HPV) Detection-High Risk Types is Negative. No E6 or E7 mRNA is detected from HPV types 16,18,31,33,35,3 9,45,51,52,56,58 ,59,66, and 68 by wax ball molder mediated amplification.Te sting was performed on specimen [id number] and was resulted on 01/16/2024 1801 EDT by AIDEN, LAB INSTRUMENT RESULTS IN 01/16/2024 18:01 EDT [facility] Performing Lab [facility] 01/16/2024 18:01 EDT [facility] Scanned Images 01/16/2024 18:01 EDT [facility] Pap Test CERVIX UTERI STRUCTURE / Unknown 01/09/2024 9:15 EDT 01/10/2024 13:38 EDT Kassy Caro MD PATHOLOGY ORDERABLES [facility] [address] [place] [address] documented in this encounter Visit Diagnoses Diagnosis Encounter for other general examination documented in this encounter Care Teams Supervisor Tank Cleaning Relationship Specialty Start Date End Date Unknown, Provider, PCP - General 12/23/23 documented as of this encounter
--- OUTSIDE RECORDS SUMMARY | 2024-04-16 11:18 | XMS_ITS | Encounter Summary ---
Author Organization [facility] Address [facility] [address] [place] [address] Care Team Providers Care Database Architect Name Role Phone Sridevi Segovia MD Primary Care Provider [phone] Encounter Details Date Type Department Care Team (Latest Contact Info) Description 03/01/2021 8:15 AM EDT - 03/01/2021 11:59 PM EDT Hospital Encounter XRay at [address] [place] [address] Justin Begum MD [facility] [place]ULMONARY [place] [address] Cough, persistent Discharge Disposition: Home Social History Tobacco Use Types Packs/Day Years Used Date Smoking Tobacco: Former Cigarettes 0.5 14 1 2009 Smokeless Tobacco: Never Comments:Smoked off and on a nd family smoked in the house Sex and Gender Information Value Date Recorded Sex Assigned at Not on file Gender Identity Not on file Sexual Orientation Not on file documented as of this encounter Medications at Time of Discharge Medication Sig Dispensed Refills Start Date End Date levothyroxine (Synthroid) 100 mcg Tablet TAKE 1 TABLET BY MOUTH EVERY DAY DISCONTINUE 88MCG DOSE 02/02/2021 fluticasone propionate (FLONASE) 50 mcg/actuation [place], Suspension 1 spray by Each Nare route daily. 16 g 12 03/01/2021 budesonide-formoteroL (Symbicort) 80-4.5 mcg/actuation HFA Aerosol Inhaler Inhale 2 puffs into the lungs 2 times daily. 1 Inhaler 11 03/01/2021 documented as of this encounter Plan of Treatment Upcoming Encounters Date Type Department Care Team (Late st Contact Info) Description 06/04/2024 10:20 AM EDT Office Visit Dermatology at [address] [place] [id number] documented as of this encounter Procedures Procedure Name Priority Date/Time Associated Diagnosis Comments XR CHEST PA AND LATERAL Routine 03/01/2021 8:33 AM EDT Cough, persistent documented in this encounter Results * XR Chest PA & Lateral (Generic) (03/01/2021 8:33 AM EDT) Anatomical Region Laterality Modality Chest N/A Digital Radiogra phy Impressions 03/01/2021 8:38 AM EDT Clear lungs. Thank you for letting us participate in the care of this patient. ??If you are a health care provider and have any questions regarding this report, please contact the number below. ??For patients who have questions please contact the health physician locums urgent care that requested your imaging first. ? Electronically signed by: BIJU MACIAS DO, [facility] ([phone]), at 03/01/2021 8:38 AM Narrative 03/01/2021 8:38 AM EDT EXAMINATION: XR CHEST PA AND LATERAL (GENERIC) CLINICAL HISTORY: cough TECHNIQUE: PA and lateral view of the chest COMPARISON: None FINDINGS: The cardiomediastinal silhouette is stable. No pulmonary vascular congestion, focal consolidation, pleural effusion or pneumothorax. Procedure Note Biju Macias DO - 03/01/2021 EXAMINATION: XR CHEST PA AND LATERAL (GENERIC) CLINICAL HISTORY: cough TECHNIQUE: PA and lateral view of the chest COMPARISON: None FINDINGS: The cardiomediastinal silhouette is stable. No pulmonary vascularcongestion, focal consolidation, pleural effusion or pneumothorax. IMPRESSION Clear lungs. Thank you for letting us participate in the care of this patient. If youare a health care provider and have any questions regarding this report,please contact the number below. For patients who have questions please contactthe health physician locums urgent care that requested your imaging first. Electronically signed by: BIJU MACIAS DO [facility]([phone]), at 03/01/2021 8:38 AM Justin Begum MD IMG DX ORDERABLES documented in this encounter Visit Diagnoses Diagnosis Cough, persistent Cough documented in this encounter Care Teams Database Architect Relationship Specialty Start Date End Date Sridevi Segovia MD [address] [place] [address] PCP - General Family Medicine 12/02/20 01/22/24 documented as of this encounter
--- OUTSIDE RECORDS SUMMARY | 2024-04-16 11:18 | XMS_ITS | Encounter Summary ---
Author Organization [facility] Address [facility] [address] [place] [address] Care Team Providers Care Mycologist Name Role Phone Sridevi Segovia MD Primary Care Provider [phone] Encounter Details Date Type Department Care Team (Late st Contact Info) Description 02/27/2021 Orders Only [place] [address] Justin Begum MD [facility] [place] [address] Cough, persistent (Primary Dx) Social History Tobacco Use Types Packs/Day Years [...] 10:20 AM EDT Office Visit Dermatology at [facility] [address] [place] [address] documented as of this encounter Results * XR Chest PA [...] who have questions please contact the health care management assistant that requested your imaging first. ? Electronically signed by: BIJU MACIAS DO [facility] [place] ([phone]), at 03/01/2021 8:38 AM Narrative 03/01/2021 8:38 [...] patients who have questions please contactthe health care management assistant that requested your imaging first. Electronically signed by: BIJU MACIAS DO, [facility]([phone]), at 03/01/2021 8:38 AM Justin Begum MD IMG DX ORDERABLES documented in this encounter Visit Diagnoses Diagnosis Cough, persistent- Primary Cough Cough, persistent Cough documented in this encounter Care Teams Mycologist Relationship Specialty Start Date End Date Sridevi Segovia MD [address] [place] [address] PCP - General Family Medicine 12/02/20 01/22/24 documented as of this encounter
[2024-04-16 14:57] LABS: TSH (W/Ref FT4) 0.57 uIU/mL (0.36-3.74)
== END 2024-04-16 11:16 | disposition home or self-care (01) ==
LOC: NCHCN 11:15
PROVIDERS: PCP Family Medicine; Visit Provider Family Medicine
DX: E03.9 Hypothyroidism, unspecified (principal)
CPT/HCPCS: 84443

== ENCOUNTER 2025-01-20 13:31 | Outpatient (REF) | payer BC, SELFPAY ==
--- NOTE | 2025-01-20 13:00 | PAPFT_PTH ---
PATIENT: Madison Hua LOC: [facility] U#:[id number] AGE/SX: 44/F ROOM: RE01/20/[address]: Kassy Caro MD : 1980 BED: DIS: 01/20/2025 SPEC #: [id number] RECD: 01/20/25 17:36 STATUS: GAUTAM REQ #: [id number] TEMITOPE: 01/20/25 13:[address]: Kassy Caro DEPT: [facility] Cytology RECD BY: Sowmya Arzate ENTERED: 01/20/25 17:37 SP TYPE: PAPFT OTHR DR: Yolanda Rico Tissues: 1 - CX/ENDOCX FOR PAP SMEARS Procedures: PAP THIN PREP/[facility] Screening HPV DNA PROBE Comments: [id number] (HPV 16 & 18/45)
== END 2025-01-20 13:32 | disposition home or self-care (01) ==
LOC: LBN 13:31
PROVIDERS: PCP Family Medicine; Visit Provider Obstetrics & Gynecology
DX: Z11.51 Encounter for screening for human papillomavirus (HPV) (principal); Z01.419 Encounter for gynecological examination (general) (routine) without abnormal findings
CPT/HCPCS: 88142; 87624

== ENCOUNTER 2025-02-03 17:12 | Outpatient (REF) | payer BC, SELFPAY ==
[2025-02-03 16:36] LABS: Bacteria Few HPF (Negative); C & S Indicated? No; Casts Negative LPF (Negative); Crystals Negative HPF (Negative); Epithelial Cells Rare HPF (Negative); Mucus Trace (Negative)
== END 2025-02-03 17:13 | disposition home or self-care (01) ==
LOC: LBN 17:12
PROVIDERS: PCP Family Medicine; Visit Provider Physician Assistant Medical
DX: R10.2 Pelvic and perineal pain (principal)
CPT/HCPCS: 81015; 87086; 87480; 87510; 87660

== ENCOUNTER 2025-02-22 04:09 | Outpatient (CLI) | payer BC, SELFPAY | END 2025-02-22 04:10 | disposition home or self-care (01) | PROVIDERS: PCP Family Medicine; Visit Provider Family Medicine | DX: E03.9 Hypothyroidism, unspecified (principal) | CPT/HCPCS: 36415; 84443 ==

== ENCOUNTER 2025-03-17 00:04 | Outpatient (CLI) | payer BC, SELFPAY ==
--- NOTE | 2025-03-17 08:05 | DI.MAMMO_ITS ---
Exam(s) MAMMO SCREENING EXAM: MAMMO SCREENING CLINICAL HISTORY: screening TECHNIQUE: Mammograms were interpreted according to the usual protocol including computer analysis with CAD system, tomosynthesis and C-view imaging. COMPARISON: 2022 and 2023 FINDINGS: The breasts are composed of heterogeneously dense fibroglandular densities, Breast Density category C. No suspicious masses or suspicious microcalcifications are seen. No skin thickening or abnormal axillary lymph nodes are seen. There has been no significant change from prior exams. IMPRESSION: BI-RADS Category 1, Negative mammogram. Yearly screening mammography is recommended. Breast Density: Category C - The breasts are heterogeneously dense, which may obscure small masses. Breast density Category C or D implies that the patient has dense breast tissue. Dense breast tissue can make it harder to find cancer on a mammogram. Dense breast tissue is also associated with an increased risk of breast cancer. This information about the result of the mammogram report was provided to the patient to raise their awareness. Use this report when you speak with the patient about their risks for breast cancer, which includes their family history. At that time, you may recommend additional screening tests (Ultrasound or MRI) as these tests may add significant information. A negative radiographic report should not delay biopsy if a dominant or clinically suspicious mass is present. Up to ten percent of cancers are not identified on mammography. A negative report may reinforce clinical impression. Adenosis and dense breasts may obscure an underlying neoplasm. False positive reports average 6 to 10%.
== END 2025-03-17 00:24 ==
LOC: DI 00:04
PROVIDERS: PCP Family Medicine; Visit Provider Obstetrics & Gynecology
DX: Z12.31 Encounter for screening mammogram for malignant neoplasm of breast (principal); R92.333 Mammographic heterogeneous density, bilateral breasts
CPT/HCPCS: 77063; 77067